=== PATIENT | male | born 1955 | race Caucasian/White ===

== ENCOUNTER 2017-04-08 13:09 | Inpatient (IN) | payer MEDICARE, OTHER ==
[~2017-04-08] VITALS: Ht 170.2 cm; Wt 66.0 kg
[~2017-04-08 13:09] MED LIST: ASPI325T32 PO; CARB100T2 PO; FOLI-49 PO; GABA-528 PO; IBUP400T22 PO; ICOS1CAP PO; LEVE100018 PO; LISI10TA2 PO; NEBI5TAB9 PO; OMEP20CA16 PO; SIMV40TA3 PO; VITA1TAB58 PO
--- NOTE | 2017-04-08 13:46 | ERD ---
ER Documentation Chief Complaint Date/Time DATE: 04/08/17 TIME: 13:34 Chief Complaint MECHANICAL FALL WITH MULTIPLE ABRASIONS HPI 62-year-old male who presented emergency department for head/facial injury, neck pain/stiffness secondary to mechanical fall. Stated that he was walking on a 3 stair step ups when his left foot missed a step, then he fell forward hitting his forehead and face to a metal gate door, then felt that his neck snapped back. Complains of left upper eyebrow abrasion, left cheek abrasion, left parietal area abrasion. Now complains of headache and asked for a diagnostic imagings. Stated that he is normally limping on his left side( chronic). He also stated that he has left upper extremity deficit due to the fact that he had a fall/head injury when he was 6 months old and developed a left-sided paralysis. Denies loss of consciousness, dizziness, dizziness prior to fall, loss of consciousness, blurry vision, changes in vision, photophobia, facial pain, ear pain, throat pain, difficulty swallowing, shoulder pain, chest pain, chest pain prior to fall, cough, hemoptysis, abdominal pain, back pain, loss of appetite, nausea, vomiting, nausea and vomiting prior to fall, hematochezia, diarrhea, constipation, urinary symptoms, bladder and bowel incontinences, numbness or tingling sensation, difficulty walking, recent travel, recent exposure to illness, recent antibiotic use in the last 3 months, fever, chills. No known drug allergies. Past medical history of petit mal seizure, hypertension, Cardiac. Surgical history: Left upper arm surgery (done when he was 7 years old) with metal implant. Pacemaker placement. Left lower extremity surgery (not sure if he has any metal implant). Medication: Reviewed. Social history: Not working at this time. Denies smoking, use of alcohol, use of illegal drugs. ROS All systems reviewed and are negative except as per history of present illness. Medications Home Meds Active Scripts Ibuprofen* (Motrin*) 400 Mg Tab, 400 MG PO Q8, #30 TAB Prov:DAMASO CONNORS 09/06/15 Reported Medications Omeprazole* (Omeprazole*) 20 Mg Capsule.dr, 20 MG PO DAILY, #30 CAP 09/06/15 Icosapent Ethyl (VASCEPA) 1 Gm Capsule, 2 GM PO BID, CAP 09/06/15 Gabapentin* (Gabapentin*) 800 Mg Tablet, 800 MG PO TID, TAB 09/06/15 Carbamazepine* (Carbamazepine*) 100 Mg Tab.chew, 200 MG PO TID, TAB.CHEW 09/06/15 Aspirin* (Aspirin* EC) 325 Mg Tab, 325 MG PO DAILY, TAB 09/06/15 Levetiracetam* (Keppra*) 1,000 Mg Tablet, 1500 MG PO BID, TAB 03/21/14 Vitamin B Complex (B Complex) 1 Tab.sa Tablet.sa, 1 TAB.SA PO DAILY 07/04/13 Simvastatin (Simvastatin) 40 Mg Tablet, 40 MG PO DAILY 07/04/13 Lisinopril* (Lisinopril*) 10 Mg Tablet, 20 MG PO DAILY 07/04/13 Folic Acid* (Folic Acid*) 1 Mg Tablet, 1 MG PO DAILY 07/04/13 Nebivolol* (Bystolic*) 5 Mg Tab, 5 MG PO DAILY 07/04/13 Allergies Allergies: Coded Allergies: No Known Allergies (Verified Allergy, Unknown, 09/06/15) PMhx/Soc History of Surgery: Yes (PACEMAKER, RT RCR, LEFT FOOT, LT HAND/ARM) Anesthesia Reaction: No Hx Neurological Disorder: No Hx Respiratory Disorders: No Hx Cardiac Disorders: No Hx Psychiatric Problems: No Hx Miscellaneous Medical Probl: No Hx Alcohol Use: No Hx Substance Use: No Hx Tobacco Use: No Physical Exam Vitals Vital Signs Date Time Temp Pulse Resp B/P Pulse Ox O2 Delivery O2 Flow Rate FiO2 04/08/17 13:13 98.1 86 18 113/71 97 Physical Exam CONSTITUTIONAL: HEAD: Normocephalic; Left temporal area has mild abrasion no active bleeding. Left maxillary area has an abrasion with no active bleeding. EYES: Conjunctiva clear, sclera non-icteric, EOM intact. PERRLA. Extraocular movement of his eyes is within normal limits. No pain on eye movement. Left upper near supraorbital area has abrasion with no laceration and has no active bleeding. Ears: Hearing intact. EACs clear, TMs non-bulging, non-inflamed, translucent & mobile, ossicles normal appearance, No obstructions, no erythema, no discharges. No bleeding. Nose: No obstructions. No polyps. No external lesions. Mucosa non-inflamed. No external lesions, septum and turbinates normal. No rhinorrhea. No discharges. Frontal sinus is non-tender to palpation. Maxillary sinus is non-tender to palpation. Midline with no obvious deformity. No septal hematoma. Patent airway. MOUTH: Moist mucous membranes, no lesion, no obstructions, no vesicles, no thrush, patent airway. No signs of tooth or teeth avulsions. Patent airway. Able to control tongue movement. Throat: Uvula in midline. Right tonsil is +1 with no erythema, no exudate. Left tonsil is +1 with no erythema, no exudate. Tolerating secretions well. Good gag reflex. Able to control tongue movement. Patent airway. Neck: Supple, without lesions, bruits, or adenopathy. No mass. Thyroid non- enlarged and non-tender to palpation. Please see musculoskeletal physical examination. CHEST: Symmetrical chest. Respirations even and not labored. No retractions noted. CARDIOVASCULAR: Normal S1, S2. RRR. No murmurs, gallops. RESPIRATORY: Normal chest excursion with respiration; breath sounds clear and equal bilaterally; no wheezes, rhonchi, or rales. Breathing even and unlabored. Speaking in clear, full, and complete sentences w/ ease. ABDOMEN: Normal bowel sounds normal. Soft, round, non-distended, non-guarding, no tenderness, no rebound, no organomegaly, no masses, no pulsating abdominal mass. No hernia. No peritoneal signs. : No CVA tenderness. PELVIS: Stable pelvis. No evidence of trauma or deformity. MUSCULOSKELETAL: No masses, effusions. C-spine has no swelling/bulging/ discoloration/deformity with good and full range of motion but complains of stiffness. There is supraspinatus tenderness to left upper and right upper area. T-spine/L-spine has no swelling/bulging/discoloration/deformity/ tenderness with good and full range of motion. Left upper extremity has chronic contraction due to left-sided paralysis secondary to head injury/fall when he was 6 months old. Right upper extremity is unremarkable. Bilateral hips are stable and unremarkable with good and full range of motion and is no tenderness. Bilateral knees are unremarkable with no obvious deformity and has good and full range of motion. Patient has left lower extremity limping secondary to residual from his left sided paralysis that is also secondary to an head injury when he was 6 months old. No calf tenderness. NEUROVASCULAR: Distal pulses are present. Pedal pulse are present, equal, and normal. Capillary refills are < 2 seconds. NEUROLOGIC: Alert and oriented x4. Speaks full and clear sentences. PSYCHOLOGICAL: The patients mood and manner are appropriate. No hallucinations , delusions. Not SI. Not HI. Has the capacity to decide for self SKIN: Normal for age and ethnicity; warm; dry; good turgor; no apparent lesions or exudates. No rashes, hives, discoloration. Procedures/MDM Examination: Please see physical examination. Disease process, medical treatment was explained to the patient and family member. They verbalized understanding and agreed with the diagnostic tests, medical treatment, and follow-up care. Radiology: CT of the brain Impression: No intracranial hemorrhage, mass-effect or midline shift. Large area of encephalomalacia with dystrophic calcifications involving the lateral right frontal, temporal lobe including the insular cortex and subinsular region extending into the right basal ganglia, unchanged. Generalized volume loss. Chronic lacunar infarcts in the left basal ganglia. Intracranial atherosclerosis. CT of the face and maxillary area Impression: No facial bone fracture is identified. Moderate degenerative enthesopathy is seen to the cervical spine. A 3.6 cm in maximum diameter polyp or mucous retention cyst is seen within the left maxillary sinus. Encephalomalacia seen within the right frontal lobe with atherosclerotic vascular calcification noted. CT of the C-spine Impression: Nondisplaced fracture through the anterior superior corner of the C6 vertebral body. The posterior osseous elements appear intact. The margins appear slightly sclerosis and there is no significant associated soft tissue swelling. The chronicity of this is therefore uncertain. Clinical correlation is indicated. No other fracture is identified. Reversal of the normal lordotic curvature to the cervical spine centered at C5. Loss of disc height at C4-C5, C5-C6 and at C6-C7 associated with degenerative enthesopathy with mild stenosis through the bilateral nerve root canals at C6-C7 secondary to degenerative spurring. Atherosclerotic vascular calcifications noted. Case was discussed with supervising emergency room physician, Dr. Yareli Barnhart who suggested to call neurosurgery for this. Consultation: Neurosurgeon. 15:30 spoke with neurosurgery, Dr.Gregoy Myers who suggested to put patient on [place] J collar. He stated to call [facility] to order this. He also stated that patient needs to be admitted. Conversation with neurosurgeon was discussed with supervising emergency room physician, Dr. Yareli Barnhart who agreed in my medical decision making. She also agreed to continue care and process the admission. Treatment: [place] J Collar. Differential diagnosis: Subdural hematoma versus subarachnoid hemorrhage versus skull fracture versus orbital fracture versus concussion versus spinal fracture Secondary to head injury Medical decision makin-year-old male who presented emergency department for head/facial injury, neck pain secondary to mechanical fall. Stated that he was walking on a 3 stair step ups when his left foot missed a step, then he fell forward hitting his forehead and face to a metal gate door, then felt that his neck snapped back. Complains of left upper eyebrow abrasion, left cheek abrasion, left parietal area abrasion. Now complains of headache and asked for a diagnostic imagings. Stated that he is normally limping on his left side. He also stated that he has left upper extremity deficit due to the fact that he had a fall/head injury when he was 6 months old and developed a left-sided paralysis. Patient's complaint, patient's history about his complaint, my physical findings, diagnostic test results, my reevaluation are consistent with final diagnosis of nondisplaced C6 fracture/facial contusions secondary to head injury/fall. Departure Diagnosis: Primary Impression: Cervical spine fracture Additional Impressions: Head injury Facial contusion Additional Instructions: MICHELLE PIZANO Apr 08, 2017 13:44 MICHELLE PIZANO Apr 08, 2017 13:44
--- NOTE | 2017-04-08 14:26 | RADRPT ---
PROCEDURE: CT Brain without contrast. CLINICAL INDICATION: Head injury. TECHNIQUE: A CT of the brain was performed on a multidetector CT scanner utilizing axial sections from the skull base through the vertex without contrast. Images were reviewed on a high-resolution [employer] workstation. Exam CTDI = 45.01 mGy and the DLP = 630.20 mGy-cm. One or more of the following dose reduction techniques were used: Automated exposure control Adjustment of the mA and/or kV according to patient size. Use of iterative reconstruction technique. COMPARISON: Head CT 03/21/2014. FINDINGS: Mild diffuse cerebral and cerebellar atrophy is present. There is proportionate dilatation of the v entricular system and sulci in a symmetric fashion. There is prominence of the extraaxial spaces sec ondary to atrophy. There is no evidence of intracranial hemorrhage, mass effect or midline shift. Re demonstrated is a large area of encephalomalacia involving the lateral right frontal lobe, superior anterior temporal lobe including the insula and sub insular region extending into the right basal ga nglia. Dystrophic calcifications are identified along the margins of the encephalomalacia at the zayra benitez. There is ex vacuo dilatation of the right lateral ventricle. There are small chronic lacunar i nfarcts in the left basal ganglia. No abnormal intra-axial or extra-axial fluid collections are see n. The density of the brain is normal and the christine/white matter differentiation is well preserved. Mild patchy diffuse deep white matter microangiopathic ischemic change is seen. The osseous structures are unremarkable. Paranasal sinuses are clear. Vascular calcifications are identified. IMPRESSION: 1. No intracranial hemorrhage, mass effect or midline shift. 2. Large area of encephalomalacia with dystrophic calcifications involving the lateral right fronta l, temporal lobe including the insular cortex sub insular region extending into the right basal gang ana, unchanged. 3. Generalized volume loss. Chronic lacunar infarcts in the left basal ganglia. 4. Intracranial atherosclerosis. RPTAT: PP .Ruthie Trevino MD, MD Date Time Electronically viewed and signed by .Ruthie Trevino MD, on 04/08/2017 14:26 .O/
--- NOTE | 2017-04-08 14:34 | RADRPT ---
PROCEDURE: CT Maxillofacial without Contrast CLINICAL INDICATION: Head injury TECHNIQUE: Transaxial images were obtained through the maxillofacial region on a multi-slice scan er without the intravenous contrast administration. Sagittal and coronal re-formations were subseque ntly reconstructed. One or more of the following dose reduction techniques were used: - Automated exposure control. - Adjustment of the mA and/or kV according to patient size. - Use of iterative reconstruction technique. Radiation dose: CTDIvol = 29.45 mGy; DLP = 564.09 mGy-cm. COMPARISON: No prior studies are available for comparison. FINDINGS: Osseous structures: Appear intact with no fracture or destructive process evident. There is metal ar tifact from dental fillings. There is moderate degenerative enthesopathy to the cervical spine. Paranasal sinuses: There is a 3.6 cm in maximal diameter polyp for a mucous retention cyst within th e inferior left maxillary antrum. The remaining paranasal sinuses are well-aerated. Mastoid air cells: Appear well pneumatized. Temporomandibular joints: Appear unremarkable. Orbits: The ocular globes, optic nerves, and intraorbital contents appear unremarkable. Soft tissues: There is encephalomalacia within the right frontal lobe. Vascular calcifications note d. IMPRESSION: 1. No facial bone fracture is identified. 2. Moderate degenerative enthesopathy is seen to the cervical spine. 3. A 3.6 cm in maximum diameter polyp for a mucous retention cyst is seen within the left maxillary sinus. 4. Encephalomalacia seen within the right frontal lobe with atherosclerotic vascular calcification noted. Physician Tanvir Date Time Electronically viewed and signed by Physician Tanvir on 04/08/2017 14:34 /
--- NOTE | 2017-04-08 15:07 | RADRPT ---
PROCEDURE: CT C-Spine without Contrast CLINICAL INDICATION: Injury TECHNIQUE: Transaxial images were obtained through the cervical spine on a multi sliced scanner wit hout contrast. Sagittal and coronal re-formations were subsequently reformatted. One or more of the following dose reduction techniques were used: - Automated exposure control. - Adjustment of the mA and/or kV according to patient size. - Use of iterative reconstruction technique. Radiation dose: CTDIvol = 22.15 mGy; DLP = 444.13 mGy-cm. COMPARISON: None FINDINGS: Osseous structures: There is a nondisplaced fracture through the anterior superior corner of the C6 vertebral body. The posterior osseous elements appear intact. The remaining visualized osseous janusz ments appear intact. Alignment: There is reversal of the normal lordotic curvature to the cervical spine centered at C5. No significant subluxation is evident. Disk spaces, endplates, and facet joints: There is loss of disk height at C4-C5, C5-C6 and at C6-S7 associated with anterior and posterior spondylosis. Mild diffuse degenerative facet changes are also noted. There is mild bilateral nerve root canal stenosis at C6-C7 secondary to degenerative spurrin g. Soft tissues: Atherosclerotic vascular calcifications noted. IMPRESSION: 1. Nondisplaced fracture through the anterior superior corner of the C6 vertebral body. The posteri or osseous elements appear intact. The margins appear slightly sclerosis and there is no significan t associated soft tissue swelling. The chronicity of this is therefore uncertain. Clinical correla tion is indicated. No other fracture is identified. 2. Reversal of the normal lordotic curvature to the cervical spine centered at C5. 3. Loss of disk height at C4-C5, C5-C6 and at C6-C7 associated with degenerative enthesopathy with mild stenosis to the bilateral nerve root canals at C6-C7 secondary to degenerative spurring. 4. Atherosclerotic vascular calcifications noted. Findings of fracture involving the anterior superior corner of this C6 vertebral body were telephone d by Matt Tucker MD to Dr. Ruiz on 04/08/2017 at 1445 hours. Physician Tanvir Date Time Electronically viewed and signed by Physician Tanvir on 04/08/2017 15:06 /
[2017-04-08 16:52] LABS: ADD SCAN DIFF NO
[2017-04-08 16:55] LABS: BASOPHIL # 0.1 10^3/ul (0.0-0.1); BASOPHILS % 0.7 % (0.0-2.0); EOSINOPHILS # 0.2 10^3/ul (0.0-0.5); EOSINOPHILS % 1.8 % (0.0-7.0); HEMATOCRIT 38.2 % (42.0-52.0); HEMOGLOBIN 13.2 g/dl (14.0-18.0); LYMPHOCYTES # 1.3 10^3/ul (0.8-2.9); LYMPHOCYTES % 15.2 % (15.0-51.0); MEAN CORPUSCULAR HEMOGLOBIN 32.1 pg (29.0-33.0); MEAN CORPUSCULAR HGB CONC 34.6 g/dl (32.0-37.0); MEAN CORPUSCULAR VOLUME 92.9 fl (82.0-101.0); MEAN PLATELET VOLUME 9.2 fl (7.4-10.4); MONOCYTE # 0.7 10^3/ul (0.3-0.9); MONOCYTES % 8.5 % (0.0-11.0); NEUTROPHIL # 6.3 10^3/ul (1.6-7.5); NEUTROPHILS % 73.6 % (39.0-77.0); PLATELET COUNT 168 10^3/UL (140-415); RED BLOOD COUNT 4.11 10^6/ul (4.70-6.10); RED CELL DISTRIBUTION WIDTH 11.9 % (11.5-14.5); WHITE BLOOD COUNT 8.6 10^3/ul (4.8-10.8)
[2017-04-08] MEDS ORDERED: BISACODYL (EC) 5 MG TAB PO PRN (17:00)
[2017-04-08] MEDS ORDERED: HYDROCODONE/APAP (5/325) TAB PO PRN (17:00)
[2017-04-08] MEDS ORDERED: ONDANSETRON 4 MG INJ IV PRN (17:00)
[2017-04-08] MEDS ORDERED: NACL 0.9% 3 ML SYG IV SCH (17:00)
[2017-04-08] MEDS ORDERED: ACETAMINOPHEN 325 MG TAB PO PRN ×2 (17:00)
[2017-04-08] MEDS ORDERED: DOCUSATE SODIUM 100 MG CAP PO PRN (17:00)
[2017-04-08 17:17] LABS: ALANINE AMINOTRANSFERASE 45 IU/L (13-69); ALKALINE PHOSPHATASE 64 IU/L (42-121); ANION GAP 19 (8-16); ASPARTATE AMINO TRANSFERASE 37 IU/L (15-46); BILIRUBIN,TOTAL 0.2 mg/dl (0.2-1.3); BLOOD UREA NITROGEN 16 mg/dl (7-20); CALCIUM 9.1 mg/dl (8.4-10.2); CARBON DIOXIDE 30 mmol/L (21-31); CHLORIDE 100 mmol/L (97-110); CREATININE 0.69 mg/dl (0.61-1.24); GLUCOSE 80 mg/dl (70-220); POTASSIUM 3.9 mmol/L (3.5-5.1); SODIUM 145 mmol/L (135-144)
[2017-04-08 17:18] LABS: ALBUMIN 4.7 g/dl (3.3-4.9); ALBUMIN/GLOBULIN RATIO 1.88; BILIRUBIN,INDIRECT 0.2 mg/dl (0-1.1); TOTAL PROTEIN 7.2 g/dl (6.1-8.1)
[2017-04-08 17:29] LABS: TROPONIN-I < 0.012 ng/ml (0.00-0.12)
--- NOTE | 2017-04-08 18:18 | EN ---
Date/Time of Note Date/Time of Note DATE: 04/08/17 TIME: 18:15 ER Progress Note This is a 62-year-old male who is been seen by the physician trade sales assistant and evaluated by myself after the patient had radiographic imaging and was positive for a C6 vertebral fracture which was nondisplaced over the anterior superior corner of the C6 vertebral body. The patient was immediately placed in C-spine precaution. The neurosurgeon has been consulted and requested a [place] J collar. However I attempted to find the color by contacting the orthopedic surgeon senior occupational therapist Dr. Walker, who stated he did not have any of those collars available. I contacted central supply who also stated they did not have these collars available either. Therefore the patient was placed in C-spine precaution with a [place] collar. He remained neurovascularly intact with no new focal neurological deficits. This is a very pleasant male at this time stating he did not require any analgesic medication. I spoken with his primary care physician Dr. Lema who kindly stated he will admit the patient and I did feel the patient was stable to go to the telemetry service as again he had no acute focal neurological deficits. He had ambulated into the emergency department for evaluation after the mechanical fall. He was hemodynamically stable. ANGEL LUIS BRYANT Apr 08, 2017 18:17
[2017-04-08 21:06] VITALS: PULSE 97
[2017-04-08 21:54] VITALS: Ht 170.2 cm; Wt 66.0 kg
[2017-04-08 22:14] VITALS: BP 141/96; RESP 17
[2017-04-08] MEDS: GABAPENTIN 400 MG CAP PO SCH (22:16)
[2017-04-08] MEDS: LEVETIRACETAM 500 MG TAB PO SCH (22:16)
[2017-04-08] MEDS: FISH OIL 1,000 MG CAP PO SCH (22:16)
[2017-04-08] MEDS: carBAMAZepine CHEW 100 MG CHEW PO SCH (22:17)
[2017-04-08] MEDS: ATORVASTATIN 40 MG TAB PO SCH (22:17)
[2017-04-08 23:41] VITALS: BP 139/90; RESP 17
[2017-04-09] VITALS (12 sets, daily range): BP systolic 116–128; BP diastolic 68–86; PULSE 78–89; RESP 18–20
[2017-04-09] MEDS: PANTOPRAZOLE (EC) 40 MG TAB PO SCH (05:40)
[2017-04-09 05:58] LABS: ADD SCAN DIFF NO
[2017-04-09 06:02] LABS: BASOPHILS % 0.7 % (0.0-2.0); EOSINOPHILS # 0.2 10^3/ul (0.0-0.5); EOSINOPHILS % 3.6 % (0.0-7.0); HEMATOCRIT 34.6 % (42.0-52.0); HEMOGLOBIN 11.9 g/dl (14.0-18.0); LYMPHOCYTES # 1.1 10^3/ul (0.8-2.9); LYMPHOCYTES % 19.6 % (15.0-51.0); MEAN CORPUSCULAR HEMOGLOBIN 31.6 pg (29.0-33.0); MEAN CORPUSCULAR HGB CONC 34.4 g/dl (32.0-37.0); MEAN PLATELET VOLUME 9.3 fl (7.4-10.4); MONOCYTE # 0.5 10^3/ul (0.3-0.9); MONOCYTES % 9.2 % (0.0-11.0); NEUTROPHIL # 3.9 10^3/ul (1.6-7.5); NEUTROPHILS % 66.7 % (39.0-77.0); PLATELET COUNT 143 10^3/UL (140-415); RED BLOOD COUNT 3.76 10^6/ul (4.70-6.10); RED CELL DISTRIBUTION WIDTH 11.9 % (11.5-14.5); WHITE BLOOD COUNT 5.8 10^3/ul (4.8-10.8)
[2017-04-09 06:44] LABS: ALBUMIN 4.1 g/dl (3.3-4.9); ALBUMIN/GLOBULIN RATIO 2.15; BILIRUBIN,INDIRECT 0.2 mg/dl (0-1.1); BILIRUBIN,TOTAL 0.2 mg/dl (0.2-1.3); CALCIUM 8.3 mg/dl (8.4-10.2); CREATININE 0.7 mg/dl (0.61-1.24)
[2017-04-09] MEDS ORDERED: VITAMIN B COMPLEX PO SCH (09:00)
[2017-04-09] MEDS: FISH OIL 1,000 MG CAP PO SCH ×2 (09:18→20:24)
[2017-04-09] MEDS: VITAMIN B COMPLEX/VIT C CAP PO SCH (09:18)
[2017-04-09] MEDS: LEVETIRACETAM 500 MG TAB PO SCH ×2 (09:18→20:25)
[2017-04-09] MEDS: FOLIC ACID 1 MG TAB PO SCH (09:19)
[2017-04-09] MEDS: GABAPENTIN 400 MG CAP PO SCH ×3 (09:19→20:25)
[2017-04-09] MEDS: carBAMAZepine CHEW 100 MG CHEW PO SCH ×3 (09:19→20:25)
[2017-04-09] MEDS: LISINOPRIL 20 MG TAB PO SCH (09:20)
[2017-04-09] MEDS: NEBIVOLOL 5 MG TAB PO SCH (09:20)
[2017-04-09] MEDS: ATORVASTATIN 40 MG TAB PO SCH (20:25)
--- NOTE | 2017-04-09 21:48 | CONS ---
Date/Time of Note Date/Time of Note DATE: 04/09/17 TIME: 21:42 Assessment/Plan Assessment/Plan Problems: (1) C6 cervical fracture Status: Acute Additional Assessment/Plan C6 fracture, chronic with neck pain Continue c-collar bc of neck pain cannot exclude ligamentous injury C-Collar x 2 weeks (whenever weightbearing, not necessary when sleeping/ supine ) and then flexion-extension xray to rule out ligamentous instability (he may follow up with me for this study if desired). Consultation Date/Type/Reason Admit Date/Time Apr 08, 2017 at 16:37 Date of Consultation: Apr 09, 2017 Type of Consultation: neurosurgery Reason for Consultation C6 fracture Hx of Present Illness 62 year old male with history of multiple prior falls presented to ED after fall down stairs. CTH negative. CT c-spine positive for multilevel degenerative disease, reversal of lordosis, and chronic fracture (withe sclerotic margins) of anterior vertebral body- superior endplate of C6. There is no significant loss of height. Social History Smoking Status: Never smoker Exam/Review of Systems Vital Signs Vitals Vital Signs Date Time Temp Pulse Resp B/P Pulse Ox O2 Delivery O2 Flow Rate FiO2 04/09/17 20:43 80 04/09/17 20:00 98.4 20 121/79 98 04/08/17 20:29 Room Air Intake and Output 04/08/17 04/08/17 04/09/17 15:00 23:00 07:00 Intake Total 120 ml Output Total 200 ml Balance -200 ml 120 ml Exam Neurologic exam non-focal; patient with flexion contracture LUE and existing baseline neurodeficits. He is however [id number] PERRL EOMI. Neck is tender in the midline to palpation and with active range of motion. Collar replaced. Results Result Diagram: 04/09/17 0526 04/09/17 0526 Results 24 hrs Laboratory Tests Test 04/09/17 05:26 White Blood Count 5.8 # Red Blood Count 3.76 L Hemoglobin 11.9 L Hematocrit 34.6 L Mean Corpuscular Volume 92.0 Mean Corpuscular Hemoglobin 31.6 Mean Corpuscular Hemoglobin Concent 34.4 Red Cell Distribution Width 11.9 Platelet Count 143 Mean Platelet Volume 9.3 Neutrophils % 66.7 Lymphocytes % 19.6 Monocytes % 9.2 Eosinophils % 3.6 Basophils % 0.7 Nucleated Red Blood Cells % 0.0 Neutrophils # 3.9 Lymphocytes # 1.1 Monocytes # 0.5 Eosinophils # 0.2 Basophils # 0.0 Nucleated Red Blood Cells # 0.0 Sodium Level 144 Potassium Level 4.0 Chloride Level 107 Carbon Dioxide Level 26 Anion Gap 15 Blood Urea Nitrogen 15 Creatinine 0.70 Glucose Level 98 Calcium Level 8.3 L Total Bilirubin 0.2 Direct Bilirubin 0.00 Indirect Bilirubin 0.2 Aspartate Amino Transf (AST/SGOT) 34 Alanine Aminotransferase (ALT/SGPT) 42 Alkaline Phosphatase 64 Total Protein 6.0 #L Albumin 4.1 Globulin 1.90 Albumin/Globulin Ratio 2.15 Medications Medications Current Medications Acetaminophen (Tylenol Tab) 650 mg Q6H PRN PO PAIN LEVEL 1-3 OR FEVER; Start at 17:00 Acetaminophen/ Hydrocodone Bitart ([place] (5/325)) 1 tab Q6H PRN PO PAIN LEVEL 4 -6; Start 04/08/17 at 17:00 Docusate Sodium (Colace) 100 mg Q12H PRN PO CONSTIPATION; Start 04/08/17 at 17: 00 Bisacodyl (Dulcolax) 5 mg DAILY PRN PO CONSTIPATION; Start 04/08/17 at 17:00 Pantoprazole (Protonix Tab) 40 mg DAILY@06 PO Last administered on 04/09/17 05 :40; Admin Dose 40 MG; Start 04/09/17 at 06:00 Carbamazepine (Tegretol) 200 mg TID PO Last administered on 04/09/17 20:25; Admin Dose 200 MG; Start 04/08/17 at 21:00 Folic Acid (Folic Acid) 1 mg DAILY PO Last administered on 04/09/17 09:19; Admin Dose 1 MG; Start 04/09/17 at 09:00 Gabapentin (Neurontin) 800 mg TID PO Last administered on 04/09/17 20:25; Admin Dose 800 MG; Start 04/08/17 at 21:00 Levetiracetam (Keppra) 1,500 mg BID PO Last administered on 04/09/17 20:25; Admin Dose 1,500 MG; Start 04/08/17 at 21:00 Lisinopril (Zestril) 20 mg DAILY PO Last administered on 04/09/17 09:20; Admin Dose 20 MG; Start 04/09/17 at 09:00 Miscellaneous Medication (Bystolic) 5 mg DAILY PO Last administered on 09:20; Admin Dose 5 MG; Start 04/09/17 at 09:00 Fish Oil (Fish Oil) 2,000 mg BID PO Last administered on 04/09/17 20:24; Admin Dose 2,000 MG; Start 04/08/17 at 21:00 Atorvastatin Calcium (Lipitor) 40 mg QHS PO Last administered on 04/09/17 20: 25; Admin Dose 40 MG; Start 04/08/17 at 21:00 Vitamin B Complex/ Vitamin C (Berocca) 1 cap DAILY PO Last administered on 04/09 09:18; Admin Dose 1 CAP; Start 04/09/17 at 09:00 CRYSTAL CHIRINOS MD Apr 09, 2017 21:48
[2017-04-10] VITALS (10 sets, daily range): BP systolic 110–161; BP diastolic 74–88; PULSE 81–84; RESP 16–20
[2017-04-10] MEDS: PANTOPRAZOLE (EC) 40 MG TAB PO SCH (05:32)
[2017-04-10] MEDS: VITAMIN B COMPLEX/VIT C CAP PO SCH (08:20)
[2017-04-10] MEDS: FISH OIL 1,000 MG CAP PO SCH ×2 (08:21→20:15)
[2017-04-10] MEDS: NEBIVOLOL 5 MG TAB PO SCH (08:21)
[2017-04-10] MEDS: FOLIC ACID 1 MG TAB PO SCH (08:22)
[2017-04-10] MEDS: LEVETIRACETAM 500 MG TAB PO SCH ×2 (08:22→20:15)
[2017-04-10] MEDS: LISINOPRIL 20 MG TAB PO SCH (08:23)
[2017-04-10] MEDS: carBAMAZepine CHEW 100 MG CHEW PO SCH ×3 (08:23→20:16)
[2017-04-10] MEDS: GABAPENTIN 400 MG CAP PO SCH ×3 (08:23→20:16)
--- NOTE | 2017-04-10 13:36 | HP ---
Date/Time of Note Date/Time of Note DATE: 04/10/17 TIME: 13:25 Assessment/Plan VTE Prophylaxis VTE Prophylaxis Intervention: SCD's Lines/Catheters IV [facility]from [facility] Saline Lock Urinary Cath still in place: No Assessment/Plan Problems: (1) C6 cervical fracture Status: Acute Comment: Neurosurgery is involved in this case is already in a collar. I will give us guidance. Fortunately it appears that there is no neurologic sequela. Management rehab as per the guidance from neurosurgery. Qualifiers: Encounter type: initial encounter Fracture type: closed Fracture morphology: unspecified fracture morphology Fracture alignment: nondisplaced Qualified Code: S12.501A - Closed nondisplaced fracture of sixth cervical vertebra, unspecified fracture morphology, initial encounter (2) Post traumatic seizure disorder Status: Chronic Comment: He has been without evidence of seizure for some time. We will continue him on his anti-epilepsy drug therapy she is tolerated without incident. (3) Other hyperlipidemia Status: Chronic Comment: He will be continued on a statin therapy is all along with omega-3 [address] a Vas-Cath for the hypertriglyceridemia (4) Essential hypertension Status: Chronic Comment: Continue JONATHAN inhibitor therapy (5) Hyperlipidemia Comment: As above HPI/ROS Admit Date/Time Admit Date/Time Apr 08, 2017 at 16:37 Hx of Present Illness Late entry [facility], [place] 62-year-old single male who has a history of a traumatic brain injury requiring resulting in a left hemiparesis upper extremity for greater than lower extremity. He does have a history of occasional falls. He was climbing up the stairs at his residence and caught his foot at the top step falling forward and hitting his head against a gate. This snapped his head back and resulted in a crunching sound and immediate pain. He did not have any neurologic changes or new issues. Is brought to the emergency room where is been found to have a C6 fracture. ROS Constitutional: no complaints Eyes: no complaints ENT: no complaints Respiratory: no complaints Cardiovascular: no complaints Gastrointestinal: no complaints Genitourinary: no complaints Musculoskeletal: neck pain Skin: no complaints Neurologic: no complaints (No changes in his baseline status and no activities of seizures) Endocrine: no complaints Lymphatic: no complaints PMH/Family/Social Past Medical History 1) status post traumatic injury at age 7 months with resultant left hemiparesis left upper extremity much greater than left lower extremity; 2) osteoporosis 3) hyperlipidemia 4) hypertension 5) seizure disorder 6) history of third-degree heart block 7) colonic polyposis 8) diverticulosis coli 9) gastroesophageal reflux disease 10) status post pacemaker placement 11) history of right great toe fracture in 2013 Medications; aspirin 325 mg once daily; Bystolic 5 mg once daily; folate 1 mg once a day; gabapentin 800 3 times daily; Keppra 1500 mg twice daily; lisinopril 20 mg once a day; Vascepa 2 g twice daily; simvastatin 40 mg once a day; Prolia 60 mg every 6 month; omeprazole 20 mg every morning; B complex Past Surgical History Status post right rotator cuff repair; status post left Achilles repair 2; status post ORIF of left radius fracture; status post baclofen pump placement and then subsequent removal Family History Significant Family History: heart disease, diabetes Social History Born in [place] and raise; high school education without experience ; single lives alone; 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 Alcohol Use: none Smoking Status: Never smoker Drug Use: none Exam/Review of Systems Vital Signs Vitals Vital Signs Date Time Temp Pulse Resp B/P Pulse Ox O2 Delivery O2 Flow Rate FiO2 04/10/17 12:11 81 04/10/17 11:54 98.6 18 120/83 95 04/08/17 20:29 Room Air Intake and Output 04/09/17 04/09/17 04/10/17 15:00 23:00 07:00 Intake Total 360 ml 240 ml Output Total 475 ml 300 ml Balance -115 ml -60 ml Exam Constitutional: alert, oriented Head: atraumatic, normocephalic ENMT: mucosa pink and moist, nl external ears & nose, nl lips & teeth, nl nasal mucosa & septum Neck: other (In a [place] collar) Respiratory: clear to auscultation, normal air movement Cardiovascular: nl pulses, regular rate and rhythm Gastrointestinal: nl liver, spleen, non-tender, soft Extremities: normal pulses, other (Left upper extremity with contracture fixed ; left lower extremity with some muscle atrophy) Neurological: FAMILY PRACTITIONER II-XII intact, nl mental status, nl speech, nl strength Labs Result Diagram: 04/09/1752504/09/17525 Medications Medications Current Medications Acetaminophen (Tylenol Tab) 650 mg Q6H PRN PO PAIN LEVEL 1-3 OR FEVER; Start at 17:00 Acetaminophen/ Hydrocodone Bitart ([place] (5/325)) 1 tab Q6H PRN PO PAIN LEVEL 4 -6; Start 04/08/17 at 17:00 Docusate Sodium (Colace) 100 mg Q12H PRN PO CONSTIPATION; Start 04/08/17 at 17: 00 Bisacodyl (Dulcolax) 5 mg DAILY PRN PO CONSTIPATION; Start 04/08/17 at 17:00 Pantoprazole (Protonix Tab) 40 mg DAILY@06 PO Last administered on 04/10/17 05 :32; Admin Dose 40 MG; Start 04/09/17 at 06:00 Carbamazepine (Tegretol) 200 mg TID PO Last administered on 04/10/17 12:37; Admin Dose 200 MG; Start 04/08/17 at 21:00 Folic Acid (Folic Acid) 1 mg DAILY PO Last administered on 04/10/17 08:22; Admin Dose 1 MG; Start 04/09/17 at 09:00 Gabapentin (Neurontin) 800 mg TID PO Last administered on 04/10/17 12:37; Admin Dose 800 MG; Start 04/08/17 at 21:00 Levetiracetam (Keppra) 1,500 mg BID PO Last administered on 04/10/17 08:22; Admin Dose 1,500 MG; Start 04/08/17 at 21:00 Lisinopril (Zestril) 20 mg DAILY PO Last administered on 04/10/17 08:23; Admin Dose 20 MG; Start 04/09/17 at 09:00 Miscellaneous Medication (Bystolic) 5 mg DAILY PO Last administered on 08:21; Admin Dose 5 MG; Start 04/09/17 at 09:00 Fish Oil (Fish Oil) 2,000 mg BID PO Last administered on 04/10/17 08:21; Admin Dose 2,000 MG; Start 04/08/17 at 21:00 Atorvastatin Calcium (Lipitor) 40 mg QHS PO Last administered on 04/09/17 20: 25; Admin Dose 40 MG; Start 04/08/17 at 21:00 Vitamin B Complex/ Vitamin C ([place]) 1 cap DAILY PO Last administered on 04/10 08:20; Admin Dose 1 CAP; Start 04/09/17 at 09:00 KAJAL WU MD Apr 10, 2017 13:35
--- NOTE | 2017-04-10 13:48 | PN ---
Date/Time of Note Date/Time of Note DATE: 04/10/17 TIME: 13:45 Assessment/Plan VTE Prophylaxis VTE Prophylaxis Intervention: contraindicated Lines/Catheters IV Catheter Type (from Nrs): Saline Lock Urinary Cath still in place: No Assessment/Plan Problems: (1) C6 cervical fracture Status: Acute Comment: Please see the consult note from Dr. Myers. This may not be an acute fracture been aggravation ligamentously of an old fracture. like this request to wear his collar but this appears to be much less frightening situation. Of physical therapy make sure that he is competent for ambulation and with is come permission to discharge him tomorrow Qualifiers: Encounter type: initial encounter Fracture type: closed Fracture morphology: unspecified fracture morphology Fracture alignment: nondisplaced Qualified Code: S12.501A - Closed nondisplaced fracture of sixth cervical vertebra, unspecified fracture morphology, initial encounter (2) Hypertension Status: Chronic Comment: Adequate control Qualifiers: Hypertension type: essential hypertension Qualified Code: I10 - Essential hypertension (3) Post traumatic seizure disorder Status: Chronic Comment: Stable and controlled without activity (4) Other hyperlipidemia Status: Chronic Comment: On full treatment Subjective 24 Hr Interval Summary Free Text/Dictation Patient is not wearing his collar today. He reports he is feeling better. Constitutional: no complaints Respiratory: no complaints Cardiovascular: no complaints Gastrointestinal: no complaints Musculoskeletal: neck pain Neurologic: no complaints (No new and no changes) Exam/Review of Systems Vital Signs Vitals Vital Signs Date Time Temp Pulse Resp B/P Pulse Ox O2 Delivery O2 Flow Rate FiO2 04/10/17 12:11 81 04/10/17 11:54 98.6 18 120/83 95 04/08/17 20:29 Room Air Intake and Output 04/09/17 04/09/17 04/10/17 15:00 23:00 07:00 Intake Total 360 ml 240 ml Output Total 475 ml 300 ml Balance -115 ml -60 ml Exam Constitutional: alert, oriented Neck: non-tender, supple Respiratory: clear to auscultation, normal air movement Cardiovascular: nl pulses, regular rate and rhythm Gastrointestinal: nl liver, spleen, non-tender, soft Results Result Diagram: 04/09/17 0526 04/09/17525 Medications Medications Current Medications Acetaminophen (Tylenol Tab) 650 mg Q6H PRN PO PAIN LEVEL 1-3 OR FEVER; Start at 17:00 Acetaminophen/ Hydrocodone Bitart ([place] (5/325)) 1 tab Q6H PRN PO PAIN LEVEL 4 -6; Start 04/08/17 at 17:00 Docusate Sodium (Colace) 100 mg Q12H PRN PO CONSTIPATION; Start 04/08/17 at 17: 00 Bisacodyl (Dulcolax) 5 mg DAILY PRN PO CONSTIPATION; Start 04/08/17 at 17:00 Pantoprazole (Protonix Tab) 40 mg DAILY@06 PO Last administered on 04/10/17 05 :32; Admin Dose 40 MG; Start 04/09/17 at 06:00 Carbamazepine (Tegretol) 200 mg TID PO Last administered on 04/10/17 12:37; Admin Dose 200 MG; Start 04/08/17 at 21:00 Folic Acid (Folic Acid) 1 mg DAILY PO Last administered on 04/10/17 08:22; Admin Dose 1 MG; Start 04/09/17 at 09:00 Gabapentin (Neurontin) 800 mg TID PO Last administered on 04/10/17 12:37; Admin Dose 800 MG; Start 04/08/17 at 21:00 Levetiracetam (Keppra) 1,500 mg BID PO Last administered on 04/10/17 08:22; Admin Dose 1,500 MG; Start 04/08/17 at 21:00 Lisinopril (Zestril) 20 mg DAILY PO Last administered on 04/10/17 08:23; Admin Dose 20 MG; Start 04/09/17 at 09:00 Miscellaneous Medication (Bystolic) 5 mg DAILY PO Last administered on 08:21; Admin Dose 5 MG; Start 04/09/17 at 09:00 Fish Oil (Fish Oil) 2,000 mg BID PO Last administered on 04/10/17 08:21; Admin Dose 2,000 MG; Start 04/08/17 at 21:00 Atorvastatin Calcium (Lipitor) 40 mg QHS PO Last administered on 04/09/17 20: 25; Admin Dose 40 MG; Start 04/08/17 at 21:00 Vitamin B Complex/ Vitamin C ([place]) 1 cap DAILY PO Last administered on 04/10t 08:20; Admin Dose 1 CAP; Start 04/09/17 at 09:00 KAJAL WU MD Apr 10, 2017 13:48
[2017-04-10] MEDS: ATORVASTATIN 40 MG TAB PO SCH (20:15)
[2017-04-11] VITALS (12 sets, daily range): BP systolic 108–159; BP diastolic 69–100; PULSE 79–82; RESP 16–19
[2017-04-11] MEDS: PANTOPRAZOLE (EC) 40 MG TAB PO SCH (05:16)
[2017-04-11] MEDS: VITAMIN B COMPLEX/VIT C CAP PO SCH (08:12)
[2017-04-11] MEDS: NEBIVOLOL 5 MG TAB PO SCH (08:13)
[2017-04-11] MEDS: FOLIC ACID 1 MG TAB PO SCH (08:13)
[2017-04-11] MEDS: LEVETIRACETAM 500 MG TAB PO SCH ×2 (08:13→20:25)
[2017-04-11] MEDS: FISH OIL 1,000 MG CAP PO SCH ×2 (08:13→20:25)
[2017-04-11] MEDS: GABAPENTIN 400 MG CAP PO SCH ×3 (08:14→20:25)
[2017-04-11] MEDS: carBAMAZepine CHEW 100 MG CHEW PO SCH ×3 (08:14→20:25)
[2017-04-11] MEDS: LISINOPRIL 20 MG TAB PO SCH (08:15)
--- NOTE | 2017-04-11 14:11 | PN ---
Date/Time of Note Date/Time of Note DATE: 04/11/17 TIME: 14:07 Assessment/Plan VTE Prophylaxis VTE Prophylaxis Intervention: SCD's Lines/Catheters IV Catheter Type (from Nrs): Saline Lock Urinary Cath still in place: No Assessment/Plan Problems: (1) Hyperlipidemia Status: Chronic Comment: On statin therapy and stable Qualifiers: Hyperlipidemia type: pure hypercholesterolemia Qualified Code: E78.00 - Pure hypercholesterolemia (2) Essential hypertension Status: Chronic Comment: Well-controlled (3) Post traumatic seizure disorder Status: Chronic Comment: Remains without evidence of seizure activity long-term (4) C6 cervical fracture Status: Acute Comment: This is more of a cervical ligament strain as this fracture is old. Will be discharged in the morning. Qualifiers: Encounter type: initial encounter Fracture type: closed Fracture morphology: unspecified fracture morphology Fracture alignment: nondisplaced Qualified Code: S12.501A - Closed nondisplaced fracture of sixth cervical vertebra, unspecified fracture morphology, initial encounter (5) Facial contusion Status: Acute Comment: Stable. No evidence of intracranial pathology Qualifiers: Encounter type: initial encounter Qualified Code: S00.83XA - Facial contusion, initial encounter Subjective 24 Hr Interval Summary Constitutional: no complaints Eyes: no complaints Respiratory: no complaints Cardiovascular: no complaints Gastrointestinal: no complaints Genitourinary: no complaints Neurologic: no complaints Exam/Review of Systems Vital Signs Vitals Vital Signs Date Time Temp Pulse Resp B/P Pulse Ox O2 Delivery O2 Flow Rate FiO2 04/11/17 12:26 82 04/11/17 11:34 97.6 18 159/99 96 04/08/17 20:29 Room Air Intake and Output 04/10/17 04/10/17 04/11/17 15:00 23:00 07:00 Intake Total 600 ml 120 ml Output Total 200 ml Balance 600 ml -80 ml Exam Constitutional: alert, oriented Respiratory: clear to auscultation, normal air movement Cardiovascular: nl pulses, regular rate and rhythm Gastrointestinal: nl liver, spleen, non-tender, soft Results Result Diagram: 04/09/17 0526 04/09/17 05 Medications Medications Current Medications Acetaminophen (Tylenol Tab) 650 mg Q6H PRN PO PAIN LEVEL 1-3 OR FEVER; Start at 17:00 Acetaminophen/ Hydrocodone Bitart ([place] (5/325)) 1 tab Q6H PRN PO PAIN LEVEL 4 -6; Start 04/08/17 at 17:00 Docusate Sodium (Colace) 100 mg Q12H PRN PO CONSTIPATION; Start 04/08/17 at 17: 00 Bisacodyl (Dulcolax) 5 mg DAILY PRN PO CONSTIPATION; Start 04/08/17 at 17:00 Pantoprazole (Protonix Tab) 40 mg DAILY@06 PO Last administered on 04/11/17 05 :16; Admin Dose 40 MG; Start 04/09/17 at 06:00 Carbamazepine (Tegretol) 200 mg TID PO Last administered on 04/11/17 12:08; Admin Dose 200 MG; Start 04/08/17 at 21:00 Folic Acid (Folic Acid) 1 mg DAILY PO Last administered on 04/11/17 08:13; Admin Dose 1 MG; Start 04/09/17 at 09:00 Gabapentin (Neurontin) 800 mg TID PO Last administered on 04/11/17 12:07; Admin Dose 800 MG; Start 04/08/17 at 21:00 Levetiracetam (Keppra) 1,500 mg BID PO Last administered on 04/11/17 08:13; Admin Dose 1,500 MG; Start 04/08/17 at 21:00 Lisinopril (Zestril) 20 mg DAILY PO Last administered on 04/11/17 08:15; Admin Dose 20 MG; Start 04/09/17 at 09:00 Miscellaneous Medication (Bystolic) 5 mg DAILY PO Last administered on 08:13; Admin Dose 5 MG; Start 04/09/17 at 09:00 Fish Oil (Fish Oil) 2,000 mg BID PO Last administered on 04/11/17 08:13; Admin Dose 2,000 MG; Start 04/08/17 at 21:00 Atorvastatin Calcium (Lipitor) 40 mg QHS PO Last administered on 04/10/17 20: 15; Admin Dose 40 MG; Start 04/08/17 at 21:00 Vitamin B Complex/ Vitamin C ([place]) 1 cap DAILY PO Last administered on 04/11 08:12; Admin Dose 1 CAP; Start 04/09/17 at 09:00 KAJAL WU MD Apr 11, 2017 14:10
[2017-04-11] MEDS: ATORVASTATIN 40 MG TAB PO SCH (20:25)
[2017-04-12] VITALS: BP 122/79; RESP 20
[2017-04-12 00:23] VITALS: PULSE 78
[2017-04-12 04:00] VITALS: BP 109/75; RESP 20
[2017-04-12 04:43] VITALS: PULSE 77
[2017-04-12] MEDS: PANTOPRAZOLE (EC) 40 MG TAB PO SCH (05:41)
[2017-04-12 07:23] VITALS: BP 114/78; RESP 18
[2017-04-12] MEDS: FISH OIL 1,000 MG CAP PO SCH (08:02)
[2017-04-12] MEDS: GABAPENTIN 400 MG CAP PO SCH (08:03)
[2017-04-12] MEDS: VITAMIN B COMPLEX/VIT C CAP PO SCH (08:03)
[2017-04-12] MEDS: NEBIVOLOL 5 MG TAB PO SCH (08:03)
[2017-04-12] MEDS: carBAMAZepine CHEW 100 MG CHEW PO SCH (08:04)
[2017-04-12] MEDS: LISINOPRIL 20 MG TAB PO SCH (08:04)
[2017-04-12] MEDS: FOLIC ACID 1 MG TAB PO SCH (08:04)
[2017-04-12] MEDS: LEVETIRACETAM 500 MG TAB PO SCH (08:07)
[2017-04-12 08:14] VITALS: PULSE 92
--- NOTE | 2017-04-12 08:46 | PDOCDIS ---
Discharge Instructions DIAGNOSIS Discharge Diagnosis Seizure disorder; history of traumatic injury with left hemiparesis age 6 months ; modest ambulatory instability; status post fall with closed head trauma and cervical spine ligamentous injury; history of old C6 fracture CONDITION Patient Condition: Fair HOME CARE INSTRUCTIONS: Special Diet: regular ACTIVITY: Activity Restrictions: Slowly Increase Activity Avoid heavy lifting Do not operate Machinery Do not operate Power Tool Avoid Heavy Housework FOLLOW UP/APPOINTMENTS Follow-up Plan To acute rehabilitation unit. He will go through rehab and be seen in follow- up by neurosurgery there KAJAL WU MD Apr 12, 2017 08:45
--- NOTE | 2017-04-12 08:49 | DS ---
Date/Time of Note Date/Time of Note DATE: 04/12/17 TIME: 08:47 Discharge Summary Admission/Discharge Info Admit Date/Time Apr 08, 2017 at 16:37 Discharge Date/Time April 12, 2017 Discharge Diagnosis Seizure disorder; history of traumatic injury with left hemiparesis age 6 months ; modest ambulatory instability; status post fall with closed head trauma and cervical spine ligamentous injury; history of old C6 fracture Patient Condition: Fair Consults Neurosurgery-Dr. Myers Procedures CT scan neck MRI scan neck physical therapy Hx of Present Illness Late entry [facility] 62-year-old single male who has a history of a traumatic brain injury requiring resulting in a left hemiparesis upper extremity for greater than lower extremity. He does have a history of occasional falls. He was climbing up the stairs at his residence and caught his foot at the top step falling forward and hitting his head against a gate. This snapped his head back and resulted in a crunching sound and immediate pain. He did not have any neurologic changes or new issues. Is brought to the emergency room where is been found to have a C6 fracture. Hospital Course 62 year old male with history of multiple prior falls presented to ED after fall down stairs. CTH negative. CT c-spine positive for multilevel degenerative disease, reversal of lordosis, and chronic fracture (withe sclerotic margins) of anterior vertebral body- superior endplate of C6. There is no significant loss of height. 62-year-old vibrant gentleman who had an accidental fall at his residence. He was placed in a collar and observe carefully. He did improve modestly with pain. It was recommended he be evaluated for physical therapy and rehabilitation. He is to wear his neck brace during physical activities. Otherwise he is stable and now can go to the acute rehabilitation unit. He is to be followed up at the [address] Myers of neurosurgery in 2 weeks Home Meds Active Scripts Ibuprofen* (Motrin*) 400 Mg Tab, 400 MG PO Q8, #30 TAB Prov:DAMASO CONNORS 09/06/15 Reported Medications Omeprazole* (Omeprazole*) 20 Mg Capsule., 20 MG PO DAILY, #30 CAP 09/06/15 Icosapent Ethyl (VASCEPA) 1 Gm Capsule, 2 GM PO BID, CAP 09/06/15 Gabapentin* (Gabapentin*) 800 Mg Tablet, 800 MG PO TID, TAB 09/06/15 Carbamazepine* (Carbamazepine*) 100 Mg Tab.chew, 200 MG PO TID, TAB.CHEW 09/06/15 Aspirin* (Aspirin* EC) 325 Mg Tab, 325 MG PO DAILY, TAB 09/06/15 Levetiracetam* (Keppra*) 1,000 Mg Tablet, 1500 MG PO BID, TAB 03/21/14 Vitamin B Complex (B Complex) 1 Tab.sa Tablet.sa, 1 TAB.SA PO DAILY 07/04/13 Simvastatin (Simvastatin) 40 Mg Tablet, 40 MG PO DAILY 07/04/13 Lisinopril* (Lisinopril*) 10 Mg Tablet, 20 MG PO DAILY 07/04/13 Folic Acid* (Folic Acid*) 1 Mg Tablet, 1 MG PO DAILY 07/04/13 Nebivolol* (Bystolic*) 5 Mg Tab, 5 MG PO DAILY 07/04/13 Primary Care Provider Kajal Lema MD Time spent on discharge: > 30 minutes KAJAL LEMA MD Apr 12, 2017 08:48
== END 2017-04-12 11:14 | DRG 552 ==
LOC: FTE 13:09 → TEL 16:37
PROVIDERS: ADMIT Internal Medicine; ATTEND Internal Medicine
DX: S12.501A Unspecified nondisplaced fracture of sixth cervical vertebra, initial encounter for closed fracture (principal); R56.1 Post traumatic seizures; S09.90XA Unspecified injury of head, initial encounter; G81.94 Hemiplegia, unspecified affecting left nondominant side; W10.8XXA Fall (on) (from) other stairs and steps, initial encounter; S00.01XA Abrasion of scalp, initial encounter; S00.532A Contusion of oral cavity, initial encounter; S00.12XA Contusion of left eyelid and periocular area, initial encounter; X58.XXXD Exposure to other specified factors, subsequent encounter; I10 Essential (primary) hypertension; R26.89 Other abnormalities of gait and mobility; Y92.9 Unspecified place or not applicable; E78.5 Hyperlipidemia, unspecified; S06.9X0D Unspecified intracranial injury without loss of consciousness, subsequent encounter; Z91.81 History of falling
CPT/HCPCS: 70450; 70486; 72125; 80053; 84484; 85025; 85730; 93005; 97163

== ENCOUNTER 2017-04-12 11:30 | Inpatient (IN) | payer MEDICARE, OTHER ==
[~2017-04-12] VITALS: Ht 170.2 cm; Wt 66.0 kg
[2017-04-12 11:43] VITALS: BP 119/71; PULSE 92; RESP 18
[2017-04-12 13:40] LABS: ADD UMIC NO; UR ASCORBIC ACID NEGATIVE (NEGATIVE); UR BILIRUBIN (Dip) NEGATIVE (NEGATIVE); UR BLOOD (Dip) NEGATIVE (NEGATIVE); UR CLARITY CLEAR (CLEAR); UR COLOR YELLOW (YELLOW); UR GLUCOSE (Dip) NEGATIVE (NEGATIVE); UR KETONES (Dip) NEGATIVE (NEGATIVE); UR LEUKOCYTE ESTERASE (Dip) NEGATIVE Leu/ul (NEGATIVE); UR NITRITE (Dip) NEGATIVE (NEGATIVE); UR SPECIFIC GRAVITY (Dip) 1.006 (1.003-1.030); UR TOTAL PROTEIN (Dip) NEGATIVE (NEGATIVE); UR UROBILINOGEN (Dip) NEGATIVE (NEGATIVE)
[2017-04-12 14:13] VITALS: Ht 170.2 cm; Wt 66.0 kg
[2017-04-12] MEDS: GABAPENTIN 400 MG CAP PO SCH ×2 (14:24→21:12)
[2017-04-12] MEDS ORDERED: ACETAMINOPHEN 325 MG TAB PO PRN (14:30)
[2017-04-12] MEDS ORDERED: BISACODYL (EC) 5 MG TAB PO PRN (14:30)
[2017-04-12] MEDS ORDERED: DOCUSATE SODIUM 100 MG CAP PO PRN (14:30)
[2017-04-12] MEDS ORDERED: HYDROCODONE/APAP (5/325) TAB PO PRN (14:30)
[2017-04-12] MEDS ORDERED: NACL 0.9% 3 ML SYG IV SCH (14:30)
[2017-04-12] MEDS: CARBAMAZEPINE 200 MG TAB PO SCH ×2 (16:55→21:13)
[2017-04-12 20:00] VITALS: BP 148/100; RESP 19
[2017-04-12] MEDS: ATORVASTATIN 40 MG TAB PO SCH (21:13)
[2017-04-12] MEDS: FISH OIL 1,000 MG CAP PO SCH (21:13)
[2017-04-12] MEDS: LEVETIRACETAM 750 MG TAB PO SCH (21:14)
[2017-04-12 22:20] VITALS: BP 153/90
[2017-04-13 02:00] VITALS: BP 127/84; RESP 18
[2017-04-13] MEDS: PANTOPRAZOLE (EC) 40 MG TAB PO SCH (06:32)
[2017-04-13 07:26] LABS: ADD SCAN DIFF NO
[2017-04-13 07:30] VITALS: BP 118/84; RESP 18
[2017-04-13 07:30] LABS: BASOPHIL # 0.1 10^3/ul (0.0-0.1); BASOPHILS % 1.3 % (0.0-2.0); EOSINOPHILS # 0.2 10^3/ul (0.0-0.5); EOSINOPHILS % 4.5 % (0.0-7.0); HEMATOCRIT 35.8 % (42.0-52.0); HEMOGLOBIN 12.3 g/dl (14.0-18.0); LYMPHOCYTES # 1.6 10^3/ul (0.8-2.9); LYMPHOCYTES % 29.9 % (15.0-51.0); MEAN CORPUSCULAR HEMOGLOBIN 31.5 pg (29.0-33.0); MEAN CORPUSCULAR HGB CONC 34.4 g/dl (32.0-37.0); MEAN CORPUSCULAR VOLUME 91.8 fl (82.0-101.0); MEAN PLATELET VOLUME 9.7 fl (7.4-10.4); MONOCYTE # 0.5 10^3/ul (0.3-0.9); MONOCYTES % 8.8 % (0.0-11.0); NEUTROPHILS % 55.1 % (39.0-77.0); PLATELET COUNT 154 10^3/UL (140-415); WHITE BLOOD COUNT 5.4 10^3/ul (4.8-10.8)
[2017-04-13 08:15] LABS: ALBUMIN 3.6 g/dl (3.3-4.9); ALBUMIN/GLOBULIN RATIO 1.33; BILIRUBIN,INDIRECT 0.3 mg/dl (0-1.1); BILIRUBIN,TOTAL 0.3 mg/dl (0.2-1.3); CREATININE 0.61 mg/dl (0.61-1.24); POTASSIUM 4.1 mmol/L (3.5-5.1); TOTAL PROTEIN 6.3 g/dl (6.1-8.1)
[2017-04-13] MEDS: LEVETIRACETAM 750 MG TAB PO SCH ×2 (08:47→20:39)
[2017-04-13] MEDS: FISH OIL 1,000 MG CAP PO SCH ×2 (08:47→20:39)
[2017-04-13] MEDS: GABAPENTIN 400 MG CAP PO SCH ×3 (08:47→20:39)
[2017-04-13] MEDS: FOLIC ACID 1 MG TAB PO SCH (08:54)
[2017-04-13] MEDS: VITAMIN B COMPLEX/VIT C CAP PO SCH (08:54)
[2017-04-13] MEDS: ASPIRIN (EC) 325 MG TAB PO SCH (08:54)
[2017-04-13] MEDS: NEBIVOLOL 5 MG TAB PO SCH (08:55)
[2017-04-13] MEDS ORDERED: LISINOPRIL 20 MG TAB PO SCH (09:00)
[2017-04-13] MEDS: LISINOPRIL 20 MG TAB PO SCH (09:00)
[2017-04-13] MEDS: CARBAMAZEPINE 200 MG TAB PO SCH ×3 (09:00→20:40)
--- NOTE | 2017-04-13 12:42 | CONS ---
Date/Time of Note Date/Time of Note DATE: 04/13/17 TIME: 12:27 Assessment/Plan Assessment/Plan Additional Assessment/Plan Rehabilitation post admission physician evaluation: Rehabilitation Impairment Category: Other orthopedic injury with C6 vertebral body fracture Active comorbidities: 1. Traumatic brain injury since childhood with persistent left-sided weakness 2. Seizure disorder 3. Hyperlipidemia 4. Impairments in self-care and mobility Patient was admitted for conference of interdisciplinary acute rehab and is anticipated to tolerate 3 hours of daily therapy in divided doses for at least 5 out of 7 days a week. Treatment plan will include: 1. Physical therapy to focus on bed mobility transfers and household ambulation with goal of having patient reach supervised to modified independent level 2. Occupational therapy to focus on hygiene grooming dressing bathing and toileting activities with the goal of having patient reach supervised to modified independent level 3. Rehabilitation nursing for carryover of therapeutic interventions to the left continent of bowel and bladder and the goal of pain adequately managed on oral medications Rehabilitation barrier: Residual left-sided weakness Intervention for barrier: Complaints of interdisciplinary rehab, evaluation for bracing Disposition:: Home with home health follow-up Estimated length of stay: 10 days Treatment plan has been reviewed with the patient patient is agreeable with the treatment plan and is anticipated to make reasonable goals in a reasonable period of time as outlined above. Consultation Date/Type/Reason Admit Date/Time Apr 12, 2017 at 11:30 Type of Consultation: Rehabilitation Reason for Consultation Rehabilitation post admission physician evaluation Hx of Present Illness Patient is a pleasant 62-year-old gentleman with a history of traumatic brain injury as a child with resultant residual left-sided weakness who is status post a mechanical fall while climbing up his stairs at home. Patient noted immediate neck pain. Patient was admitted to the hospital where he was noted to have a C6 cervical fracture. Patient was evaluated by neurosurgery and recommended to have a cervical collar 2 weeks for out of bed. Patient noted to have significant impairments in self-care and mobility as compared to baseline and has been cleared to transfer to the rehabilitation unit for comprehensive interdisciplinary rehab care Constitutional: No chills, No diaphoresis, No disoriented, No febrile, No improved, No no complaints, No other, No poor po, No requiring IVF, No requiring O2 Eyes: No discharge, No no complaints, No other, No pain, No redness, No visual change Respiratory: No cough, No no complaints, No other, No pain, No pleuritic pain, No shortness of breath, No sputum, No wheezing Cardiovascular: No chest pain Gastrointestinal: constipation, No blood, No decreased appetite, No diarrhea, No flatus, No nausea, No no complaints, No other, No pain, No passing stool, No vomiting Genitourinary: No bleeding, No discharge, No dysuria, No flank pain, No hematuria, No no complaints, No other Past Medical History 1. Traumatic brain injury as a child with residual left-sided weakness 2. Hyper lipedema 3. Seizure disorder Functional history: Prior to recent events patient was independent self-care tasks and mobility Current functional: Minimal to moderate assist Have reviewed the preadmission screen and patient's current functional status is consistent with the preadmission screen Exam/Review of Systems Vital Signs Vitals Vital Signs Date Time Temp Pulse Resp B/P Pulse Ox O2 Delivery O2 Flow Rate FiO2 04/13/17 07:30 97.6 90 18 118/84 96 04/12/17 11:43 Room Air Intake and Output 04/12/17 04/12/17 04/13/17 15:00 23:00 07:00 Intake Total 1020 ml 120 ml Output Total 400 ml 850 ml Balance 620 ml -730 ml Exam Neurologically the patient is awake and alert and oriented to person and hospital and date. He follows simple one-step command. He demonstrates good strength in the right upper and lower extremity. Left upper extremity is flexed abducted with weakness and increased tone. Left lower extremity with antigravity hip flexion extension knee flexion extension and decreased dorsiflexion. Constitutional: No alert, No distress, No frail, No non-verbal, No obese, No oriented, No other, No well developed Psych: No anxiety, No confusion, No depression, No nl mood/affect, No no complaints, No other, No suicidal ENMT: No intubated, No mucosa pink and moist, No nl external ears & nose, No nl lips & teeth, No nl nasal mucosa & septum, No other, No tympanic membranes Neck: No bruits, No jvd, No masses, No non-tender, No nuchal rigidity, No other , No supple, No thyromegaly Respiratory: No clear to auscultation, No congested cough, No crackles/rales, No diminished breath sounds, No intercostal retraction, No labored breathing, No normal air movement, No other, No respirations, No tactile fremitus, No wheezing Cardiovascular: regular rate and rhythm Genitourinary - Male: No CVA tenderness, No discharge, No nl penis, No nl scrotum, No other Musculoskeletal: joint tenderness, muscle tone, muscle weakness, nl extremities to inspection, nl gait and stance, other (patient with LUE flexed and adducted with weakness and increased tone,), range of motion, spine non- tender, swelling Extremities: other, pitting pedal edema Results Result Diagram: 04/13/1764304/13/17643 Results 24 hrs Laboratory Tests Test 04/13/17 06:44 White Blood Count 5.4 Red Blood Count 3.90 L Hemoglobin 12.3 L Hematocrit 35.8 L Mean Corpuscular Volume 91.8 Mean Corpuscular Hemoglobin 31.5 Mean Corpuscular Hemoglobin Concent 34.4 Red Cell Distribution Width 12.0 Platelet Count 154 Mean Platelet Volume 9.7 Neutrophils % 55.1 Lymphocytes % 29.9 Monocytes % 8.8 Eosinophils % 4.5 Basophils % 1.3 Neutrophils # 3.0 Lymphocytes # 1.6 Monocytes # 0.5 Eosinophils # 0.2 Basophils # 0.1 Nucleated Red Blood Cells # 0.0 Sodium Level 143 Potassium Level 4.1 Chloride Level 101 Carbon Dioxide Level 30 Anion Gap 16 Blood Urea Nitrogen 14 Creatinine 0.61 Glucose Level 83 Calcium Level 9.0 Total Bilirubin 0.3 Direct Bilirubin 0.00 Indirect Bilirubin 0.3 Aspartate Amino Transf (AST/SGOT) 25 Alanine Aminotransferase (ALT/SGPT) 37 Alkaline Phosphatase 73 Total Protein 6.3 Albumin 3.6 Globulin 2.70 Albumin/Globulin Ratio 1.33 Medications Medications Current Medications Pantoprazole (Protonix Tab) 40 mg DAILY@06 PO Last administered on 04/13/17 06 :32; Admin Dose 40 MG; Start 04/13/17 at 06:00 Vitamin B Complex/ Vitamin C (Berocca) 1 cap DAILY PO Last administered on 04/13 08:54; Admin Dose 1 CAP; Start 04/13/17 at 09:00 Aspirin (Ecotrin) 325 mg DAILY PO Last administered on 04/13/17 08:54; Admin Dose 325 MG; Start 04/13/17 at 09:00 Gabapentin (Neurontin) 800 mg TID PO Last administered on 04/13/17 08:47; Admin Dose 800 MG; Start 04/12/17 at 14:01 Acetaminophen/ Hydrocodone Bitart ([place] (5/325)) 1 tab Q6H PRN PO PAIN; Start 04/12/17 at 14:30 Levetiracetam (Keppra) 1,500 mg BID PO Last administered on 04/13/17 08:47; Admin Dose 1,500 MG; Start 04/12/17 at 21:00 Miscellaneous Medication (Bystolic) 5 mg DAILY PO Last administered on 08:55; Admin Dose 5 MG; Start 04/13/17 at 09:00 Acetaminophen (Tylenol Tab) 650 mg Q6H PRN PO PAIN AND OR ELEVATED TEMP; Start 04/12/17 at 14:30 Atorvastatin Calcium (Lipitor) 40 mg DAILY@21 PO Last administered on 21:13; Admin Dose 40 MG; Start 04/12/17 at 21:00 Bisacodyl (Dulcolax) 5 mg DAILY PRN PO CONSTIPATION; Start 04/12/17 at 14:30 Carbamazepine (Tegretol) 200 mg TID PO Last administered on 04/13/17 09:00; Admin Dose 200 MG; Start 04/12/17 at 14:05 Docusate Sodium (Colace) 100 mg Q12H PRN PO CONSTIPATION; Start 04/12/17 at 14: 30 Fish Oil (Fish Oil) 2,000 mg BID PO Last administered on 04/13/17 08:47; Admin Dose 2,000 MG; Start 04/12/17 at 21:00 Folic Acid (Folic Acid) 1 mg DAILY PO Last administered on 04/13/17 08:54; Admin Dose 1 MG; Start 04/13/17 at 09:00 Lisinopril (Zestril) 40 mg DAILY PO ; Start 04/13/17 at 09:00 MAHESH JAMESON MD Apr 13, 2017 12:37
[2017-04-13 14:00] VITALS: BP 123/83; RESP 18
[2017-04-13 19:58] VITALS: BP 125/80; RESP 18
[2017-04-13] MEDS: ATORVASTATIN 40 MG TAB PO SCH (20:40)
[2017-04-14 02:00] VITALS: BP 128/82; RESP 18
[2017-04-14] MEDS: PANTOPRAZOLE (EC) 40 MG TAB PO SCH (06:00)
[2017-04-14 07:44] VITALS: BP 122/90; RESP 20
[2017-04-14] MEDS: FISH OIL 1,000 MG CAP PO SCH ×2 (08:55→20:30)
[2017-04-14] MEDS: GABAPENTIN 400 MG CAP PO SCH ×3 (08:55→20:30)
[2017-04-14] MEDS: FOLIC ACID 1 MG TAB PO SCH (08:55)
[2017-04-14] MEDS: VITAMIN B COMPLEX/VIT C CAP PO SCH (08:55)
[2017-04-14] MEDS: LEVETIRACETAM 750 MG TAB PO SCH ×2 (08:55→20:30)
[2017-04-14] MEDS: NEBIVOLOL 5 MG TAB PO SCH (08:56)
[2017-04-14] MEDS: LISINOPRIL 20 MG TAB PO SCH (08:56)
[2017-04-14] MEDS: ASPIRIN (EC) 325 MG TAB PO SCH (08:56)
[2017-04-14] MEDS: CARBAMAZEPINE 200 MG TAB PO SCH ×3 (08:56→20:31)
[2017-04-14 08:58] VITALS: BP 111/78; PULSE 76; RESP 16
--- NOTE | 2017-04-14 10:19 | PN ---
Date/Time of Note Date/Time of Note DATE: 04/14/17 TIME: 10:11 Assessment/Plan VTE Prophylaxis VTE Prophylaxis Intervention: ambulation, SCD's, other Lines/Catheters Urinary Cath still in place: No Assessment/Plan Assessment/Plan 1. History of falls with nondisplaced C6 vertebral body fracture, with impaired mobility, gait and ADLs. Continue conservative treatment per NSGY. Continue cervical collar. Continue PT/OT. CGA for bed mobility and transfers. 2. Traumatic brain injury since childhood with left-sided hemiparesis, spasticity and joint contractures. 3. Seizure disorder. Continue medical management. Maintain seizure precautions. 4. Hyperlipidemia. Continue statin. 5. Anemia. Continue to monitor hemoglobin/hematocrit. 6. Hypertension. BP controlled. Continue medical management per internal medicine. Subjective 24 Hr Interval Summary Free Text/Dictation Rehab progress note Subjective: Denies any acute complaints. Denies neck pain. ROS: Denies headache, no dizziness, no new paresthesias, no chest pain, no shortness of breath, no abdominal pain. Exam/Review of Systems Vital Signs Vitals Vital Signs Date Time Temp Pulse Resp B/P Pulse Ox O2 Delivery O2 Flow Rate FiO2 04/14/17 08:58 76 16 111/78 97 Room Air 04/14/17 07:44 97.5 Intake and Output 04/13/17 04/13/17 04/14/17 15:00 23:00 07:00 Intake Total 840 ml 700 ml Output Total 450 ml Balance 390 ml 700 ml Exam General: Awake, alert, no acute distress Neck: Cervical collar in place CV: Regular rate, s1s2 Lungs: Clear to auscultation, no wheezing Abdomen soft, nontender Extremities without cyanosis, no distal edema Neuro/MSK: Left sided hemiparesis. LUE with joint contractures. Results Result Diagram: 04/13/1764304/13/17643 Medications Medications Current Medications Pantoprazole (Protonix Tab) 40 mg DAILY@06 PO Last administered on 04/14/17 06 :00; Admin Dose 40 MG; Start 04/13/17 at 06:00 Vitamin B Complex/ Vitamin C (Berocca) 1 cap DAILY PO Last administered on 04/14 08:55; Admin Dose 1 CAP; Start 04/13/17 at 09:00 Aspirin (Ecotrin) 325 mg DAILY PO Last administered on 04/14/17 08:56; Admin Dose 325 MG; Start 04/13/17 at 09:00 Gabapentin (Neurontin) 800 mg TID PO Last administered on 04/14/17 08:55; Admin Dose 800 MG; Start 04/12/17 at 14:01 Acetaminophen/ Hydrocodone Bitart ([place] (5/325)) 1 tab Q6H PRN PO PAIN; Start 04/12/17 at 14:30 Levetiracetam (Keppra) 1,500 mg BID PO Last administered on 04/14/17 08:55; Admin Dose 1,500 MG; Start 04/12/17 at 21:00 Miscellaneous Medication (Bystolic) 5 mg DAILY PO Last administered on 08:56; Admin Dose 5 MG; Start 04/13/17 at 09:00 Acetaminophen (Tylenol Tab) 650 mg Q6H PRN PO PAIN AND OR ELEVATED TEMP; Start 04/12/17 at 14:30 Atorvastatin Calcium (Lipitor) 40 mg DAILY@21 PO Last administered on 20:40; Admin Dose 40 MG; Start 04/12/17 at 21:00 Bisacodyl (Dulcolax) 5 mg DAILY PRN PO CONSTIPATION; Start 04/12/17 at 14:30 Carbamazepine (Tegretol) 200 mg TID PO Last administered on 04/14/17 08:56; Admin Dose 200 MG; Start 04/12/17 at 14:05 Docusate Sodium (Colace) 100 mg Q12H PRN PO CONSTIPATION; Start 04/12/17 at 14: 30 Fish Oil (Fish Oil) 2,000 mg BID PO Last administered on 04/14/17 08:55; Admin Dose 2,000 MG; Start 04/12/17 at 21:00 Folic Acid (Folic Acid) 1 mg DAILY PO Last administered on 04/14/17 08:55; Admin Dose 1 MG; Start 04/13/17 at 09:00 Lisinopril (Zestril) 40 mg DAILY PO ; Start 04/13/17 at 09:00 COLLINS ALLEN Apr 14, 2017 10:19
[2017-04-14 11:49] VITALS: BP 104/57; PULSE 78; RESP 14
[2017-04-14 14:00] VITALS: BP 103/78; RESP 18
--- NOTE | 2017-04-14 16:36 | PN ---
Date/Time of Note Date/Time of Note DATE: 04/14/17 TIME: 16:32 Assessment/Plan VTE Prophylaxis VTE Prophylaxis Intervention: ambulation Lines/Catheters Central line still needed: No Urinary Cath still in place: No Assessment/Plan Problems: (1) Head injury Status: Chronic Comment: childhood brain injury with resultant left sided weakness and contracture (2) Post traumatic seizure disorder Status: Chronic Comment: No seizure activity last 24 hours (3) Hypertension Status: Chronic Comment: Decent control (4) C6 cervical fracture Status: Acute Comment: Management per Neurosurgery and ARU Subjective 24 Hr Interval Summary Free Text/Dictation Patient denies pain. States neck a little stiff. Per Rn Kun patient up walking today with collar on. Exam/Review of Systems Vital Signs Vitals Vital Signs Date Time Temp Pulse Resp B/P Pulse Ox O2 Delivery O2 Flow Rate FiO2 04/14/17 14:00 83 18 103/78 96 04/14/17 11:49 Room Air 04/14/17 07:44 97.5 Intake and Output 04/13/17 04/13/17 04/14/17 15:00 23:00 07:00 Intake Total 840 ml 700 ml Output Total 450 ml Balance 390 ml 700 ml Exam Constitutional: alert, oriented Psych: nl mood/affect, no complaints Eyes: EOMI, PERRL, nl conjunctiva Respiratory: clear to auscultation Cardiovascular: regular rate and rhythm Musculoskeletal: other (left upper extremity contracture) Results Labs and vitals reviewed Result Diagram: 04/13/17 0644 04/13/17 0644 Medications Medications Current Medications Pantoprazole (Protonix Tab) 40 mg DAILY@06 PO Last administered on 04/14/17 06 :00; Admin Dose 40 MG; Start 04/13/17 at 06:00 Vitamin B Complex/ Vitamin C (Berocca) 1 cap DAILY PO Last administered on 04/14 08:55; Admin Dose 1 CAP; Start 04/13/17 at 09:00 Aspirin (Ecotrin) 325 mg DAILY PO Last administered on 04/14/17 08:56; Admin Dose 325 MG; Start 04/13/17 at 09:00 Gabapentin (Neurontin) 800 mg TID PO Last administered on 04/14/17 12:37; Admin Dose 800 MG; Start 04/12/17 at 14:01 Acetaminophen/ Hydrocodone Bitart ([place] (5/325)) 1 tab Q6H PRN PO PAIN; Start 04/12/17 at 14:30 Levetiracetam (Keppra) 1,500 mg BID PO Last administered on 04/14/17 08:55; Admin Dose 1,500 MG; Start 04/12/17 at 21:00 Miscellaneous Medication (Bystolic) 5 mg DAILY PO Last administered on 08:56; Admin Dose 5 MG; Start 04/13/17 at 09:00 Acetaminophen (Tylenol Tab) 650 mg Q6H PRN PO PAIN AND OR ELEVATED TEMP; Start 04/12/17 at 14:30 Atorvastatin Calcium (Lipitor) 40 mg DAILY@21 PO Last administered on 20:40; Admin Dose 40 MG; Start 04/12/17 at 21:00 Bisacodyl (Dulcolax) 5 mg DAILY PRN PO CONSTIPATION; Start 04/12/17 at 14:30 Carbamazepine (Tegretol) 200 mg TID PO Last administered on 04/14/17 12:37; Admin Dose 200 MG; Start 04/12/17 at 14:05 Docusate Sodium (Colace) 100 mg Q12H PRN PO CONSTIPATION; Start 04/12/17 at 14: 30 Fish Oil (Fish Oil) 2,000 mg BID PO Last administered on 04/14/17 08:55; Admin Dose 2,000 MG; Start 04/12/17 at 21:00 Folic Acid (Folic Acid) 1 mg DAILY PO Last administered on 04/14/17 08:55; Admin Dose 1 MG; Start 04/13/17 at 09:00 Lisinopril (Zestril) 40 mg DAILY PO ; Start 04/13/17 at 09:00 ELIJAH BUSH MD Apr 14, 2017 16:36
[2017-04-14 20:15] VITALS: BP 123/79; RESP 19
[2017-04-14] MEDS: ATORVASTATIN 40 MG TAB PO SCH (20:31)
[2017-04-15] MEDS: PANTOPRAZOLE (EC) 40 MG TAB PO SCH (06:32)
[2017-04-15] MEDS: FISH OIL 1,000 MG CAP PO SCH ×2 (08:19→20:12)
[2017-04-15] MEDS: GABAPENTIN 400 MG CAP PO SCH ×3 (08:20→20:13)
[2017-04-15] MEDS: FOLIC ACID 1 MG TAB PO SCH (08:20)
[2017-04-15] MEDS: CARBAMAZEPINE 200 MG TAB PO SCH ×3 (08:20→20:13)
[2017-04-15] MEDS: ASPIRIN (EC) 325 MG TAB PO SCH (08:20)
[2017-04-15] MEDS: NEBIVOLOL 5 MG TAB PO SCH (08:20)
[2017-04-15] MEDS: LEVETIRACETAM 750 MG TAB PO SCH ×2 (08:20→20:13)
[2017-04-15] MEDS: VITAMIN B COMPLEX/VIT C CAP PO SCH (08:20)
[2017-04-15 08:22] VITALS: BP 115/78; PULSE 82; RESP 14
[2017-04-15] MEDS: LISINOPRIL 20 MG TAB PO SCH (08:22)
--- NOTE | 2017-04-15 10:24 | PN ---
Date/Time of Note Date/Time of Note DATE: 04/15/17 TIME: 10:22 Assessment/Plan VTE Prophylaxis VTE Prophylaxis Intervention: ambulation, SCD's, other Lines/Catheters Urinary Cath still in place: No Assessment/Plan Assessment/Plan 1. History of falls with nondisplaced C6 vertebral body fracture, with impaired mobility, gait and ADLs. Continue conservative treatment per NSGY, cervical collar/cervical spine precautions. Continue PT/OT. Requires min assist for grooming and lower body dressing. 2. History of TBI in childhood with residual left-sided hemiparesis, spasticity , joint contractures. Continue therapies. 3. Seizure disorder. Continue medical management. 4. Hyperlipidemia. Continue statin. 5. Anemia. Continue to monitor hemoglobin/hematocrit. Internal medicine managing. 6. Hypertension. BP controlled. Continue medical management per internal medicine. Subjective 24 Hr Interval Summary Free Text/Dictation Rehab progress note Subjective: Denies any acute complaints. No neck pain reported. ROS: Denies headache, no dizziness, no chest pain, no shortness of breath, no abdominal pain, no nausea, no vomiting, no chills. Exam/Review of Systems Vital Signs Vitals Vital Signs Date Time Temp Pulse Resp B/P Pulse Ox O2 Delivery O2 Flow Rate FiO2 04/15/17 08:22 82 14 115/78 96 Room Air 04/14/17 20:15 97.5 Intake and Output 04/14/17 04/14/17 04/15/17 15:00 23:00 07:00 Intake Total 1050 ml 880 ml 750 ml Output Total 810 ml 700 ml 600 ml Balance 240 ml 180 ml 150 ml Exam General: Awake, alert, no acute distress Neck: Cervical collar in place CV: Regular rate and rhythm, s1s2 audible Lungs: Symmetrical air entry bilaterally, no wheezing Abdomen soft, nontender Extremities without cyanosis, no new swelling. Neuro: No focal changes. Left sided hemiparesis. Follows simple commands. Results Result Diagram: 04/13/1764304/13/17643 Medications Medications Current Medications Pantoprazole (Protonix Tab) 40 mg DAILY@06 PO Last administered on 04/15/17 06 :32; Admin Dose 40 MG; Start 04/13/17 at 06:00 Vitamin B Complex/ Vitamin C (Berocca) 1 cap DAILY PO Last administered on 04/15 08:20; Admin Dose 1 CAP; Start 04/13/17 at 09:00 Aspirin (Ecotrin) 325 mg DAILY PO Last administered on 04/15/17 08:20; Admin Dose 325 MG; Start 04/13/17 at 09:00 Gabapentin (Neurontin) 800 mg TID PO Last administered on 04/15/17 08:20; Admin Dose 800 MG; Start 04/12/17 at 14:01 Acetaminophen/ Hydrocodone Bitart ([place] (5/325)) 1 tab Q6H PRN PO PAIN; Start 04/12/17 at 14:30 Levetiracetam (Keppra) 1,500 mg BID PO Last administered on 04/15/17 08:20; Admin Dose 1,500 MG; Start 04/12/17 at 21:00 Miscellaneous Medication (Bystolic) 5 mg DAILY PO Last administered on 08:20; Admin Dose 5 MG; Start 04/13/17 at 09:00 Acetaminophen (Tylenol Tab) 650 mg Q6H PRN PO PAIN AND OR ELEVATED TEMP; Start 04/12/17 at 14:30 Atorvastatin Calcium (Lipitor) 40 mg DAILY@21 PO Last administered on 20:31; Admin Dose 40 MG; Start 04/12/17 at 21:00 Bisacodyl (Dulcolax) 5 mg DAILY PRN PO CONSTIPATION; Start 04/12/17 at 14:30 Carbamazepine (Tegretol) 200 mg TID PO Last administered on 04/15/17 08:20; Admin Dose 200 MG; Start 04/12/17 at 14:05 Docusate Sodium (Colace) 100 mg Q12H PRN PO CONSTIPATION Last administered on 06:32; Admin Dose 100 MG; Start 04/12/17 at 14:30 Fish Oil (Fish Oil) 2,000 mg BID PO Last administered on 04/15/17 08:19; Admin Dose 2,000 MG; Start 04/12/17 at 21:00 Folic Acid (Folic Acid) 1 mg DAILY PO Last administered on 04/15/17 08:20; Admin Dose 1 MG; Start 04/13/17 at 09:00 Lisinopril (Zestril) 40 mg DAILY PO ; Start 7/21/17 at 09:00 COLLINS ALLEN Apr 15, 2017 10:24
--- NOTE | 2017-04-15 15:43 | PN ---
Date/Time of Note Date/Time of Note DATE: 04/15/17 TIME: 15:41 Assessment/Plan VTE Prophylaxis VTE Prophylaxis Intervention: ambulation Lines/Catheters Urinary Cath still in place: No Assessment/Plan Problems: (1) C6 cervical fracture Status: Acute Comment: Management per Neurosurgery and ARU. Assessment/Plan Clinically stable Exam/Review of Systems Vital Signs Vitals Vital Signs Date Time Temp Pulse Resp B/P Pulse Ox O2 Delivery O2 Flow Rate FiO2 04/15/17 08:22 82 14 115/78 96 Room Air 04/14/17 20:15 97.5 Intake and Output 04/14/17 04/14/17 04/15/17 15:00 23:00 07:00 Intake Total 1050 ml 880 ml 750 ml Output Total 810 ml 700 ml 600 ml Balance 240 ml 180 ml 150 ml Exam Patient asleep. Per RN rosas talbert. Results Result Diagram: 04/13/1744 04/13/17 0644 Medications Medications Current Medications Pantoprazole (Protonix Tab) 40 mg DAILY@06 PO Last administered on 04/15/17 06 :32; Admin Dose 40 MG; Start 04/13/17 at 06:00 Vitamin B Complex/ Vitamin C (Berocca) 1 cap DAILY PO Last administered on 04/15 08:20; Admin Dose 1 CAP; Start 04/13/17 at 09:00 Aspirin (Ecotrin) 325 mg DAILY PO Last administered on 04/15/17 08:20; Admin Dose 325 MG; Start 04/13/17 at 09:00 Gabapentin (Neurontin) 800 mg TID PO Last administered on 04/15/17 12:08; Admin Dose 800 MG; Start 04/12/17 at 14:01 Acetaminophen/ Hydrocodone Bitart ([place] (5/325)) 1 tab Q6H PRN PO PAIN; Start 04/12/17 at 14:30 Levetiracetam (Keppra) 1,500 mg BID PO Last administered on 04/15/17 08:20; Admin Dose 1,500 MG; Start 04/12/17 at 21:00 Miscellaneous Medication (Bystolic) 5 mg DAILY PO Last administered on 08:20; Admin Dose 5 MG; Start 04/13/17 at 09:00 Acetaminophen (Tylenol Tab) 650 mg Q6H PRN PO PAIN AND OR ELEVATED TEMP; Start 04/12/17 at 14:30 Atorvastatin Calcium (Lipitor) 40 mg DAILY@21 PO Last administered on 20:31; Admin Dose 40 MG; Start 04/12/17 at 21:00 Bisacodyl (Dulcolax) 5 mg DAILY PRN PO CONSTIPATION; Start 04/12/17 at 14:30 Carbamazepine (Tegretol) 200 mg TID PO Last administered on 04/15/17 12:08; Admin Dose 200 MG; Start 04/12/17 at 14:05 Docusate Sodium (Colace) 100 mg Q12H PRN PO CONSTIPATION Last administered on 06:32; Admin Dose 100 MG; Start 04/12/17 at 14:30 Fish Oil (Fish Oil) 2,000 mg BID PO Last administered on 04/15/17 08:19; Admin Dose 2,000 MG; Start 04/12/17 at 21:00 Folic Acid (Folic Acid) 1 mg DAILY PO Last administered on 04/15/17 08:20; Admin Dose 1 MG; Start 04/13/17 at 09:00 Lisinopril (Zestril) 40 mg DAILY PO ; Start 04/13/17 at 09:00 ELIJAH BUSH MD Apr 15, 2017 15:43
[2017-04-15 20:00] VITALS: BP 118/75; RESP 18
[2017-04-15] MEDS: ATORVASTATIN 40 MG TAB PO SCH (20:12)
[2017-04-16 02:00] VITALS: BP 98/65; RESP 18
[2017-04-16] MEDS: PANTOPRAZOLE (EC) 40 MG TAB PO SCH (06:44)
[2017-04-16 07:48] VITALS: BP 136/86; RESP 18
[2017-04-16] MEDS: LEVETIRACETAM 750 MG TAB PO SCH ×2 (09:08→20:22)
[2017-04-16] MEDS: FOLIC ACID 1 MG TAB PO SCH (09:08)
[2017-04-16] MEDS: VITAMIN B COMPLEX/VIT C CAP PO SCH (09:09)
[2017-04-16] MEDS: LISINOPRIL 20 MG TAB PO SCH (09:09)
[2017-04-16] MEDS: FISH OIL 1,000 MG CAP PO SCH ×2 (09:09→20:22)
[2017-04-16] MEDS: CARBAMAZEPINE 200 MG TAB PO SCH ×3 (09:09→20:22)
[2017-04-16] MEDS: GABAPENTIN 400 MG CAP PO SCH ×3 (09:09→20:22)
[2017-04-16] MEDS: ASPIRIN (EC) 325 MG TAB PO SCH (09:10)
[2017-04-16] MEDS: NEBIVOLOL 5 MG TAB PO SCH (09:10)
[2017-04-16] MEDS ORDERED: ACETAMINOPHEN 325 MG TAB PO PRN (10:00)
[2017-04-16] MEDS ORDERED: LACTULOSE 30ML CUP PO PRN (10:00)
[2017-04-16] MEDS: DOCUSATE SODIUM 100 MG CAP PO SCH ×2 (10:00→20:22)
[2017-04-16] MEDS ORDERED: MAGNESIUM HYDROXIDE 30ML CUP PO PRN (10:00)
[2017-04-16 14:00] VITALS: BP 109/60; RESP 18
--- NOTE | 2017-04-16 14:04 | CONS ---
Date/Time of Note Date/Time of Note DATE: 04/16/17 TIME: 14:03 Consult Date/Type/Reason Admit Date/Time Apr 12, 2017 at 11:30 Initial Consult Date Type of Consultation: Rehabilitation Objective Vital Signs Date Time Temp Pulse Resp B/P Pulse Ox O2 Delivery O2 Flow Rate FiO2 04/16/17 07:48 98.0 80 18 136/86 97 04/15/17 08:22 Room Air Intake and Output 04/15/17 04/15/17 04/16/17 14:59 22:59 06:59 Intake Total 560 ml Output Total 440 ml Balance 120 ml INTERDISCIPLINARY TEAM CONFERENCE BOWEL- Cont BLADDER-Cont SKIN- intact OT- DRESSING-min BATHING-min TOILETING-min PT- BED MOBILITY-min TRANSFERS-min AMBULATION-min A/P- Interdisciplinary team conference held today. Please see interdisciplinary sheet. Working toward d.c. on 04/20 with post discharge follow up of physical therapy, occupational therapy. Results/Medications Result Diagram: 04/13/1764304/13/17643 Medications Current Medications Pantoprazole (Protonix Tab) 40 mg DAILY@06 PO Last administered on 04/16/17 06 :44; Admin Dose 40 MG; Start 04/13/17 at 06:00 Vitamin B Complex/ Vitamin C (Berocca) 1 cap DAILY PO Last administered on 04/16 09:09; Admin Dose 1 CAP; Start 04/13/17 at 09:00 Aspirin (Ecotrin) 325 mg DAILY PO Last administered on 04/16/17 09:10; Admin Dose 325 MG; Start 04/13/17 at 09:00 Gabapentin (Neurontin) 800 mg TID PO Last administered on 04/16/17 13:01; Admin Dose 800 MG; Start 04/12/17 at 14:01 Acetaminophen/ Hydrocodone Bitart ([place] (5/325)) 1 tab Q6H PRN PO PAIN; Start 04/12/17 at 14:30 Levetiracetam (Keppra) 1,500 mg BID PO Last administered on 04/16/17 09:08; Admin Dose 1,500 MG; Start 04/12/17 at 21:00 Miscellaneous Medication (Bystolic) 5 mg DAILY PO Last administered on 09:10; Admin Dose 5 MG; Start 04/13/17 at 09:00 Atorvastatin Calcium (Lipitor) 40 mg DAILY@21 PO Last administered on 20:12; Admin Dose 40 MG; Start 04/12/17 at 21:00 Bisacodyl (Dulcolax) 5 mg DAILY PRN PO CONSTIPATION; Start 04/12/17 at 14:30 Carbamazepine (Tegretol) 200 mg TID PO Last administered on 04/16/17 13:00; Admin Dose 200 MG; Start 04/12/17 at 14:05 Fish Oil (Fish Oil) 2,000 mg BID PO Last administered on 04/16/17 09:09; Admin Dose 2,000 MG; Start 04/12/17 at 21:00 Folic Acid (Folic Acid) 1 mg DAILY PO Last administered on 04/16/17 09:08; Admin Dose 1 MG; Start 04/13/17 at 09:00 Lisinopril (Zestril) 40 mg DAILY PO Last administered on 04/16/17 09:09; Admin Dose 40 MG; Start 04/13/17 at 09:00 Acetaminophen (Tylenol Tab) 650 mg Q4H PRN PO PAIN AND OR ELEVATED TEMP; Start 04/16/17 at 10:00 Docusate Sodium (Colace) 100 mg Q12 PO ; Start 04/16/17 at 10:00 Lactulose (Enulose) 20 gm DAILY PRN PO CONSTIPATION; Start 04/16/17 at 10:00 Magnesium Hydroxide (Milk Of Mag) 30 ml DAILY PRN PO CONSTIPATION; Start at 10:00 Senna (Senokot) 1 tab DAILY PO ; Start 04/17/17 at 09:00 MAHESH JAMESON MD Apr 16, 2017 14:04
[2017-04-16 20:00] VITALS: BP 104/66; RESP 18
[2017-04-16] MEDS: ATORVASTATIN 40 MG TAB PO SCH (20:22)
[2017-04-17 02:00] VITALS: BP 90/53; RESP 18
[2017-04-17] MEDS: PANTOPRAZOLE (EC) 40 MG TAB PO SCH (06:12)
--- NOTE | 2017-04-17 06:29 | PN ---
Date/Time of Note Date/Time of Note DATE: 04/17/17 TIME: 06:26 Assessment/Plan VTE Prophylaxis VTE Prophylaxis Intervention: ambulation Lines/Catheters Urinary Cath still in place: No Assessment/Plan Problems: (1) Post traumatic seizure disorder Status: Chronic Comment: On keppra and tegretol. Stable (2) Essential hypertension Status: Chronic Comment: BP controlled. Cont. current regimen (3) Hyperlipidemia Status: Chronic Comment: Cont. statin Qualifiers: Hyperlipidemia type: unspecified Qualified Code: E78.5 - Hyperlipidemia, unspecified hyperlipidemia type (4) C6 cervical fracture Status: Acute Comment: In c-collar. Neurosurgery following. Cont. rehab. Qualifiers: Encounter type: subsequent encounter Fracture type: closed Subjective 24 Hr Interval Summary Constitutional: improved, no complaints Respiratory: no complaints Cardiovascular: no complaints Gastrointestinal: no complaints Genitourinary: no complaints Musculoskeletal: no complaints Neurologic: no complaints Exam/Review of Systems Vital Signs Vitals VS - Last 72 Hours, by Label Date Time Temp Pulse Resp B/P Pulse Ox O2 Delivery O2 Flow Rate FiO2 04/17/17 02:00 97.8 81 18 90/53 97 04/16/17 20:00 98.2 88 18 104/66 97 04/16/17 14:00 98.2 85 18 109/60 96 04/16/17 07:48 98.0 80 18 136/86 97 04/16/17 02:00 98.2 96 18 98/65 98 04/15/17 20:00 98.5 88 18 118/75 93 04/15/17 08:22 82 14 115/78 96 Room Air 04/14/17 20:15 97.5 91 19 123/79 95 04/14/17 14:00 83 18 103/78 96 04/14/17 11:49 78 14 104/57 96 Room Air 04/14/17 08:58 76 16 111/78 97 Room Air 04/14/17 07:44 97.5 75 20 122/90 96 Vital Signs Date Time Temp Pulse Resp B/P Pulse Ox O2 Delivery O2 Flow Rate FiO2 04/17/17 02:00 97.8 81 18 90/53 97 04/15/17 08:22 Room Air Intake and Output 04/16/17 04/16/17 04/17/17 15:00 23:00 07:00 Intake Total 1040 ml 400 ml 200 ml Output Total 2000 ml 250 ml Balance -960 ml 150 ml 200 ml Exam Constitutional: alert, oriented, well developed Neck: other (in c-collar) Respiratory: clear to auscultation, normal air movement Cardiovascular: nl pulses, regular rate and rhythm, No edema, No murmurs/extra sounds, No rub Gastrointestinal: bowel sounds, nl liver, spleen, non-tender, soft, No mass, No rebound or guarding Musculoskeletal: nl extremities to inspection Extremities: normal pulses, No clubbing, No cyanosis, No edema 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, focal weakness (spastic LUE, LLE), nl mental status, nl speech, No nl strength Results Result Diagram: 04/13/1764304/13/17643 Medications Medications Current Medications Pantoprazole (Protonix Tab) 40 mg DAILY@06 PO Last administered on 04/17/17 06 :12; Admin Dose 40 MG; Start 04/13/17 at 06:00 Vitamin B Complex/ Vitamin C (Berocca) 1 cap DAILY PO Last administered on 04/16 09:09; Admin Dose 1 CAP; Start 04/13/17 at 09:00 Aspirin (Ecotrin) 325 mg DAILY PO Last administered on 04/16/17 09:10; Admin Dose 325 MG; Start 04/13/17 at 09:00 Gabapentin (Neurontin) 800 mg TID PO Last administered on 04/16/17 20:22; Admin Dose 800 MG; Start 04/12/17 at 14:01 Acetaminophen/ Hydrocodone Bitart ([place] (5/325)) 1 tab Q6H PRN PO PAIN; Start 04/12/17 at 14:30 Levetiracetam (Keppra) 1,500 mg BID PO Last administered on 04/16/17 20:22; Admin Dose 1,500 MG; Start 04/12/17 at 21:00 Miscellaneous Medication (Bystolic) 5 mg DAILY PO Last administered on 09:10; Admin Dose 5 MG; Start 04/13/17 at 09:00 Atorvastatin Calcium (Lipitor) 40 mg DAILY@21 PO Last administered on 20:22; Admin Dose 40 MG; Start 04/12/17 at 21:00 Bisacodyl (Dulcolax) 5 mg DAILY PRN PO CONSTIPATION; Start 04/12/17 at 14:30 Carbamazepine (Tegretol) 200 mg TID PO Last administered on 04/16/17 20:22; Admin Dose 200 MG; Start 04/12/17 at 14:05 Fish Oil (Fish Oil) 2,000 mg BID PO Last administered on 04/16/17 20:22; Admin Dose 2,000 MG; Start 04/12/17 at 21:00 Folic Acid (Folic Acid) 1 mg DAILY PO Last administered on 04/16/17 09:08; Admin Dose 1 MG; Start 04/13/17 at 09:00 Lisinopril (Zestril) 40 mg DAILY PO Last administered on 04/16/17 09:09; Admin Dose 40 MG; Start 04/13/17 at 09:00 Acetaminophen (Tylenol Tab) 650 mg Q4H PRN PO PAIN AND OR ELEVATED TEMP; Start 04/16/17 at 10:00 Docusate Sodium (Colace) 100 mg Q12 PO ; Start 04/16/17 at 10:00 Lactulose (Enulose) 20 gm DAILY PRN PO CONSTIPATION; Start 04/16/17 at 10:00 Magnesium Hydroxide (Milk Of Mag) 30 ml DAILY PRN PO CONSTIPATION; Start at 10:00 Senna (Senokot) 1 tab DAILY PO ; Start 04/17/17 at 09:00 RONNA MASCORRO MD Apr 17, 2017 06:29
[2017-04-17 07:40] VITALS: BP 121/77; RESP 18
[2017-04-17] MEDS: NEBIVOLOL 5 MG TAB PO SCH (09:17)
[2017-04-17] MEDS: FOLIC ACID 1 MG TAB PO SCH (09:19)
[2017-04-17] MEDS: ASPIRIN (EC) 325 MG TAB PO SCH (09:19)
[2017-04-17] MEDS: DOCUSATE SODIUM 100 MG CAP PO SCH ×2 (09:19→20:47)
[2017-04-17] MEDS: FISH OIL 1,000 MG CAP PO SCH ×2 (09:19→20:47)
[2017-04-17] MEDS: VITAMIN B COMPLEX/VIT C CAP PO SCH (09:19)
[2017-04-17] MEDS: LEVETIRACETAM 750 MG TAB PO SCH ×2 (09:20→20:47)
[2017-04-17] MEDS: GABAPENTIN 400 MG CAP PO SCH ×3 (09:20→20:47)
[2017-04-17] MEDS: CARBAMAZEPINE 200 MG TAB PO SCH ×3 (09:21→20:47)
[2017-04-17] MEDS: LISINOPRIL 20 MG TAB PO SCH (09:22)
[2017-04-17] MEDS: SENNA TAB PO SCH (09:27)
--- NOTE | 2017-04-17 11:10 | CONS ---
Date/Time of Note Date/Time of Note DATE: 04/17/17 TIME: 11:09 Consult Date/Type/Reason Admit Date/Time Apr 12, 2017 at 11:30 Type of Consultation: Rehabilitation Subjective Comfortable no new complaints Objective Lungs clear anteriorly Abdomen soft Minimal assist Vital Signs Date Time Temp Pulse Resp B/P Pulse Ox O2 Delivery O2 Flow Rate FiO2 04/17/17 07:40 98.3 80 18 121/77 97 04/15/17 08:22 Room Air Intake and Output 04/16/17 04/16/17 04/17/17 15:00 23:00 07:00 Intake Total 1040 ml 400 ml 200 ml Output Total 2000 ml 250 ml 400 ml Balance -960 ml 150 ml -200 ml Results/Medications Result Diagram: 04/13/1764304/13/17643 Medications Current Medications Pantoprazole (Protonix Tab) 40 mg DAILY@06 PO Last administered on 04/17/17 06 :12; Admin Dose 40 MG; Start 04/13/17 at 06:00 Vitamin B Complex/ Vitamin C (Berocca) 1 cap DAILY PO Last administered on 04/17 09:19; Admin Dose 1 CAP; Start 04/13/17 at 09:00 Aspirin (Ecotrin) 325 mg DAILY PO Last administered on 04/17/17 09:19; Admin Dose 325 MG; Start 04/13/17 at 09:00 Gabapentin (Neurontin) 800 mg TID PO Last administered on 04/17/17 09:20; Admin Dose 800 MG; Start 04/12/17 at 14:01 Acetaminophen/ Hydrocodone Bitart ([place] (5/325)) 1 tab Q6H PRN PO PAIN; Start 04/12/17 at 14:30 Levetiracetam (Keppra) 1,500 mg BID PO Last administered on 04/17/17 09:20; Admin Dose 1,500 MG; Start 04/12/17 at 21:00 Miscellaneous Medication (Bystolic) 5 mg DAILY PO Last administered on 09:17; Admin Dose 5 MG; Start 04/13/17 at 09:00 Atorvastatin Calcium (Lipitor) 40 mg DAILY@21 PO Last administered on 20:22; Admin Dose 40 MG; Start 04/12/17 at 21:00 Bisacodyl (Dulcolax) 5 mg DAILY PRN PO CONSTIPATION; Start 04/12/17 at 14:30 Carbamazepine (Tegretol) 200 mg TID PO Last administered on 04/17/17 09:21; Admin Dose 200 MG; Start 04/12/17 at 14:05 Fish Oil (Fish Oil) 2,000 mg BID PO Last administered on 04/17/17 09:19; Admin Dose 2,000 MG; Start 04/12/17 at 21:00 Folic Acid (Folic Acid) 1 mg DAILY PO Last administered on 04/17/17 09:19; Admin Dose 1 MG; Start 04/13/17 at 09:00 Lisinopril (Zestril) 40 mg DAILY PO Last administered on 04/17/17 09:22; Admin Dose 40 MG; Start 04/13/17 at 09:00 Acetaminophen (Tylenol Tab) 650 mg Q4H PRN PO PAIN AND OR ELEVATED TEMP; Start 04/16/17 at 10:00 Docusate Sodium (Colace) 100 mg Q12 PO Last administered on 04/17/17 09:19; Admin Dose 100 MG; Start 04/16/17 at 10:00 Lactulose (Enulose) 20 gm DAILY PRN PO CONSTIPATION; Start 04/16/17 at 10:00 Magnesium Hydroxide (Milk Of Mag) 30 ml DAILY PRN PO CONSTIPATION; Start at 10:00 Senna (Senokot) 1 tab DAILY PO Last administered on 04/17/17 09:27; Admin Dose 1 TAB; Start 04/17/17 at 09:00 Assessment/Plan Additional Assessment/Plan Rehabilitation -C6 vertebral body fracture Continue interdisciplinary rehab treatment plan Traumatic brain injury since childhood with persistent left-sided weakness- patient has been fit with left AFO Seizure disorder Hyperlipidemia MAHESH JAMESON MD Apr 17, 2017 11:10
[2017-04-17 14:00] VITALS: BP 101/66; RESP 18
[2017-04-17 19:45] VITALS: BP 106/63; PULSE 79; RESP 18
[2017-04-17] MEDS: ATORVASTATIN 40 MG TAB PO SCH (20:47)
--- NOTE | 2017-04-17 22:13 | PN ---
Date/Time of Note Date/Time of Note DATE: 04/17/17 TIME: 22:09 Assessment/Plan VTE Prophylaxis VTE Prophylaxis Intervention: ambulation Lines/Catheters Urinary Cath still in place: No Assessment/Plan Problems: (1) Essential hypertension Status: Chronic Comment: Good control. Cont. BP meds (2) Hyperlipidemia Status: Chronic Comment: Cont. statin Qualifiers: Hyperlipidemia type: unspecified Qualified Code: E78.5 - Hyperlipidemia, unspecified hyperlipidemia type (3) Post traumatic seizure disorder Status: Chronic Comment: Cont. keppra and carbamazepine (4) C6 cervical fracture Status: Acute Comment: Cont. rehab Qualifiers: Encounter type: subsequent encounter Fracture type: closed Subjective 24 Hr Interval Summary Constitutional: improved, no complaints Respiratory: no complaints Cardiovascular: no complaints Gastrointestinal: no complaints Genitourinary: no complaints Musculoskeletal: no complaints Neurologic: no complaints Exam/Review of Systems Vital Signs Vitals VS - Last 72 Hours, by Label Date Time Temp Pulse Resp B/P Pulse Ox O2 Delivery O2 Flow Rate FiO2 04/17/17 14:00 98.3 89 18 101/66 96 04/17/17 07:40 98.3 80 18 121/77 97 04/17/17 02:00 97.8 81 18 90/53 97 04/16/17 20:00 98.2 88 18 104/66 97 04/16/17 14:00 98.2 85 18 109/60 96 04/16/17 07:48 98.0 80 18 136/86 97 04/16/17 02:00 98.2 96 18 98/65 98 04/15/17 20:00 98.5 88 18 118/75 93 04/15/17 08:22 82 14 115/78 96 Room Air Vital Signs Date Time Temp Pulse Resp B/P Pulse Ox O2 Delivery O2 Flow Rate FiO2 04/17/17 14:00 98.3 89 18 101/66 96 04/15/17 08:22 Room Air Intake and Output 04/16/17 04/16/17 04/17/17 15:00 23:00 07:00 Intake Total 1040 ml 400 ml 200 ml Output Total 2000 ml 250 ml 400 ml Balance -960 ml 150 ml -200 ml Exam exam deferred due to pt. 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, focal weakness (spastic paresis LUE, LLE), nl mental status, nl speech, No nl strength Results Result Diagram: 04/13/1764304/13/17643 Medications Medications Current Medications Pantoprazole (Protonix Tab) 40 mg DAILY@06 PO Last administered on 04/17/17 06 :12; Admin Dose 40 MG; Start 04/13/17 at 06:00 Vitamin B Complex/ Vitamin C (Berocca) 1 cap DAILY PO Last administered on 04/17 09:19; Admin Dose 1 CAP; Start 04/13/17 at 09:00 Aspirin (Ecotrin) 325 mg DAILY PO Last administered on 04/17/17 09:19; Admin Dose 325 MG; Start 04/13/17 at 09:00 Gabapentin (Neurontin) 800 mg TID PO Last administered on 04/17/17 20:47; Admin Dose 800 MG; Start 04/12/17 at 14:01 Acetaminophen/ Hydrocodone Bitart ([place] (5/325)) 1 tab Q6H PRN PO PAIN; Start 04/12/17 at 14:30 Levetiracetam (Keppra) 1,500 mg BID PO Last administered on 04/17/17 20:47; Admin Dose 1,500 MG; Start 04/12/17 at 21:00 Miscellaneous Medication (Bystolic) 5 mg DAILY PO Last administered on 09:17; Admin Dose 5 MG; Start 04/13/17 at 09:00 Atorvastatin Calcium (Lipitor) 40 mg DAILY@21 PO Last administered on 20:47; Admin Dose 40 MG; Start 04/12/17 at 21:00 Bisacodyl (Dulcolax) 5 mg DAILY PRN PO CONSTIPATION; Start 04/12/17 at 14:30 Carbamazepine (Tegretol) 200 mg TID PO Last administered on 04/17/17 20:47; Admin Dose 200 MG; Start 04/12/17 at 14:05 Fish Oil (Fish Oil) 2,000 mg BID PO Last administered on 04/17/17 20:47; Admin Dose 2,000 MG; Start 04/12/17 at 21:00 Folic Acid (Folic Acid) 1 mg DAILY PO Last administered on 04/17/17 09:19; Admin Dose 1 MG; Start 04/13/17 at 09:00 Lisinopril (Zestril) 40 mg DAILY PO Last administered on 04/17/17 09:22; Admin Dose 40 MG; Start 04/13/17 at 09:00 Acetaminophen (Tylenol Tab) 650 mg Q4H PRN PO PAIN AND OR ELEVATED TEMP; Start 04/16/17 at 10:00 Docusate Sodium (Colace) 100 mg Q12 PO Last administered on 04/17/17 20:47; Admin Dose 100 MG; Start 04/16/17 at 10:00 Lactulose (Enulose) 20 gm DAILY PRN PO CONSTIPATION; Start 04/16/17 at 10:00 Magnesium Hydroxide (Milk Of Mag) 30 ml DAILY PRN PO CONSTIPATION; Start at 10:00 Senna (Senokot) 1 tab DAILY PO Last administered on 04/17/17 09:27; Admin Dose 1 TAB; Start 04/17/17 at 09:00 RONNA MASCORRO MD Apr 17, 2017 22:13
[2017-04-18] MEDS: PANTOPRAZOLE (EC) 40 MG TAB PO SCH (06:18)
[2017-04-18] MEDS: VITAMIN B COMPLEX/VIT C CAP PO SCH (09:00)
[2017-04-18] MEDS: CARBAMAZEPINE 200 MG TAB PO SCH ×3 (09:01→20:10)
[2017-04-18] MEDS: SENNA TAB PO SCH (09:01)
[2017-04-18] MEDS: LEVETIRACETAM 750 MG TAB PO SCH ×2 (09:01→20:10)
[2017-04-18] MEDS: NEBIVOLOL 5 MG TAB PO SCH (09:01)
[2017-04-18] MEDS: FOLIC ACID 1 MG TAB PO SCH (09:02)
[2017-04-18] MEDS: ASPIRIN (EC) 325 MG TAB PO SCH (09:02)
[2017-04-18] MEDS: DOCUSATE SODIUM 100 MG CAP PO SCH ×2 (09:02→20:11)
[2017-04-18] MEDS: LISINOPRIL 20 MG TAB PO SCH (09:02)
[2017-04-18] MEDS: GABAPENTIN 400 MG CAP PO SCH ×3 (09:02→20:10)
[2017-04-18] MEDS: FISH OIL 1,000 MG CAP PO SCH ×2 (09:02→20:10)
--- NOTE | 2017-04-18 10:47 | CONS ---
Date/Time of Note Date/Time of Note DATE: 04/18/17 TIME: 10:44 Consult Date/Type/Reason Admit Date/Time Apr 12, 2017 at 11:30 Type of Consultation: Rehabilitation Subjective Patient is pleased with his progress Objective Vital Signs Date Time Temp Pulse Resp B/P Pulse Ox O2 Delivery O2 Flow Rate FiO2 04/17/17 19:45 98.9 79 18 106/63 95 Room Air Intake and Output 04/17/17 04/17/17 04/18/17 15:00 23:00 07:00 Intake Total 800 ml 400 ml 950 ml Output Total 850 ml 300 ml 900 ml Balance -50 ml 100 ml 50 ml [id number] stair mobility and ambulation Results/Medications Medications Current Medications Pantoprazole (Protonix Tab) 40 mg DAILY@06 PO Last administered on 04/18/17 06 :18; Admin Dose 40 MG; Start 04/13/17 at 06:00 Vitamin B Complex/ Vitamin C (Berocca) 1 cap DAILY PO Last administered on 04/18 09:00; Admin Dose 1 CAP; Start 04/13/17 at 09:00 Aspirin (Ecotrin) 325 mg DAILY PO Last administered on 04/18/17 09:02; Admin Dose 325 MG; Start 04/13/17 at 09:00 Gabapentin (Neurontin) 800 mg TID PO Last administered on 04/18/17 09:02; Admin Dose 800 MG; Start 04/12/17 at 14:01 Acetaminophen/ Hydrocodone Bitart ([place] (5/325)) 1 tab Q6H PRN PO PAIN; Start 04/12/17 at 14:30 Levetiracetam (Keppra) 1,500 mg BID PO Last administered on 04/18/17 09:01; Admin Dose 1,500 MG; Start 04/12/17 at 21:00 Miscellaneous Medication (Bystolic) 5 mg DAILY PO Last administered on 09:01; Admin Dose 5 MG; Start 04/13/17 at 09:00 Atorvastatin Calcium (Lipitor) 40 mg DAILY@21 PO Last administered on 20:47; Admin Dose 40 MG; Start 04/12/17 at 21:00 Bisacodyl (Dulcolax) 5 mg DAILY PRN PO CONSTIPATION; Start 04/12/17 at 14:30 Carbamazepine (Tegretol) 200 mg TID PO Last administered on 04/18/17 09:01; Admin Dose 200 MG; Start 04/12/17 at 14:05 Fish Oil (Fish Oil) 2,000 mg BID PO Last administered on 04/18/17 09:02; Admin Dose 2,000 MG; Start 04/12/17 at 21:00 Folic Acid (Folic Acid) 1 mg DAILY PO Last administered on 04/18/17 09:02; Admin Dose 1 MG; Start 04/13/17 at 09:00 Lisinopril (Zestril) 40 mg DAILY PO Last administered on 04/18/17 09:02; Admin Dose 40 MG; Start 04/13/17 at 09:00 Acetaminophen (Tylenol Tab) 650 mg Q4H PRN PO PAIN AND OR ELEVATED TEMP; Start 04/16/17 at 10:00 Docusate Sodium (Colace) 100 mg Q12 PO Last administered on 04/18/17 09:02; Admin Dose 100 MG; Start 04/16/17 at 10:00 Lactulose (Enulose) 20 gm DAILY PRN PO CONSTIPATION; Start 04/16/17 at 10:00 Magnesium Hydroxide (Milk Of Mag) 30 ml DAILY PRN PO CONSTIPATION; Start at 10:00 Senna (Senokot) 1 tab DAILY PO Last administered on 04/18/17 09:01; Admin Dose 1 TAB; Start 04/17/17 at 09:00 Assessment/Plan Additional Assessment/Plan Rehabilitation -C6 vertebral body fracture Continue treatment plan. Working towards home at end of week Traumatic brain injury since childhood with persistent left-sided weakness-L AFO Seizure disorder Hyperlipidemia Functional impact of comorbidity: patient's residual left sided weakness from TBI as child has affected his self care and mobility, and he is working diligently to return to his independent level MAHESH JAMESON MD Apr 18, 2017 10:47
[2017-04-18 11:04] VITALS: BP 125/89; PULSE 89; RESP 18
[2017-04-18 20:06] VITALS: BP 102/65; PULSE 82; RESP 18
[2017-04-18] MEDS: ATORVASTATIN 40 MG TAB PO SCH (20:10)
--- NOTE | 2017-04-18 20:16 | PN ---
Date/Time of Note Date/Time of Note DATE: 04/18/17 TIME: 20:12 Assessment/Plan VTE Prophylaxis VTE Prophylaxis Intervention: ambulation Lines/Catheters Urinary Cath still in place: No Assessment/Plan Problems: (1) Essential hypertension Status: Chronic Comment: BP well-controlled. Cont. current anti-hypertensive regimen (2) Hyperlipidemia Status: Chronic Comment: Cont. statin Qualifiers: Hyperlipidemia type: unspecified Qualified Code: E78.5 - Hyperlipidemia, unspecified hyperlipidemia type (3) Post traumatic seizure disorder Status: Chronic Comment: Cont, keppra and tegretol (4) C6 cervical fracture Status: Acute Comment: Cont. rehab Qualifiers: Encounter type: subsequent encounter Fracture type: closed Subjective 24 Hr Interval Summary Constitutional: improved, no complaints Respiratory: no complaints Cardiovascular: no complaints Gastrointestinal: no complaints Genitourinary: no complaints Musculoskeletal: no complaints Neurologic: no complaints Exam/Review of Systems Vital Signs Vitals VS - Last 72 Hours, by Label Date Time Temp Pulse Resp B/P Pulse Ox O2 Delivery O2 Flow Rate FiO2 04/18/17 20:06 98.5 82 18 102/65 95 Room Air 04/18/17 11:04 98.2 89 18 125/89 95 Room Air 04/17/17 19:45 98.9 79 18 106/63 95 Room Air 04/17/17 14:00 98.3 89 18 101/66 96 04/17/17 07:40 98.3 80 18 121/77 97 04/17/17 02:00 97.8 81 18 90/53 97 04/16/17 20:00 98.2 88 18 104/66 97 04/16/17 14:00 98.2 85 18 109/60 96 04/16/17 07:48 98.0 80 18 136/86 97 04/16/17 02:00 98.2 96 18 98/65 98 Vital Signs Date Time Temp Pulse Resp B/P Pulse Ox O2 Delivery O2 Flow Rate FiO2 04/18/17 20:06 98.5 82 18 102/65 95 Room Air Intake and Output 04/17/17 04/17/17 04/18/17 15:00 23:00 07:00 Intake Total 800 ml 400 ml 950 ml Output Total 850 ml 300 ml 900 ml Balance -50 ml 100 ml 50 ml Exam Constitutional: alert, oriented, well developed Psych: nl mood/affect, no complaints Respiratory: clear to auscultation, normal air movement Cardiovascular: nl pulses, regular rate and rhythm, No edema, No murmurs/extra sounds, No rub Gastrointestinal: bowel sounds, nl liver, spleen, non-tender, soft, No mass, No rebound or guarding Musculoskeletal: nl extremities to inspection Extremities: normal pulses, No clubbing, No cyanosis, No edema 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, focal weakness (spastic paralysis LUE, LLE), nl mental status, nl speech Medications Medications Current Medications Pantoprazole (Protonix Tab) 40 mg DAILY@06 PO Last administered on 04/18/17 06 :18; Admin Dose 40 MG; Start 04/13/17 at 06:00 Vitamin B Complex/ Vitamin C (Berocca) 1 cap DAILY PO Last administered on 04/18 09:00; Admin Dose 1 CAP; Start 04/13/17 at 09:00 Aspirin (Ecotrin) 325 mg DAILY PO Last administered on 04/18/17 09:02; Admin Dose 325 MG; Start 04/13/17 at 09:00 Gabapentin (Neurontin) 800 mg TID PO Last administered on 04/18/17 20:10; Admin Dose 800 MG; Start 04/12/17 at 14:01 Acetaminophen/ Hydrocodone Bitart ([place] (5/325)) 1 tab Q6H PRN PO PAIN; Start 04/12/17 at 14:30 Levetiracetam (Keppra) 1,500 mg BID PO Last administered on 04/18/17 20:10; Admin Dose 1,500 MG; Start 04/12/17 at 21:00 Miscellaneous Medication (Bystolic) 5 mg DAILY PO Last administered on 09:01; Admin Dose 5 MG; Start 04/13/17 at 09:00 Atorvastatin Calcium (Lipitor) 40 mg DAILY@21 PO Last administered on 20:10; Admin Dose 40 MG; Start 04/12/17 at 21:00 Bisacodyl (Dulcolax) 5 mg DAILY PRN PO CONSTIPATION; Start 04/12/17 at 14:30 Carbamazepine (Tegretol) 200 mg TID PO Last administered on 04/18/17 20:10; Admin Dose 200 MG; Start 04/12/17 at 14:05 Fish Oil (Fish Oil) 2,000 mg BID PO Last administered on 04/18/17 20:10; Admin Dose 2,000 MG; Start 04/12/17 at 21:00 Folic Acid (Folic Acid) 1 mg DAILY PO Last administered on 04/18/17 09:02; Admin Dose 1 MG; Start 04/13/17 at 09:00 Lisinopril (Zestril) 40 mg DAILY PO Last administered on 04/18/17 09:02; Admin Dose 40 MG; Start 04/13/17 at 09:00 Acetaminophen (Tylenol Tab) 650 mg Q4H PRN PO PAIN AND OR ELEVATED TEMP; Start 04/16/17 at 10:00 Docusate Sodium (Colace) 100 mg Q12 PO Last administered on 04/18/17 09:02; Admin Dose 100 MG; Start 04/16/17 at 10:00 Lactulose (Enulose) 20 gm DAILY PRN PO CONSTIPATION; Start 04/16/17 at 10:00 Magnesium Hydroxide (Milk Of Mag) 30 ml DAILY PRN PO CONSTIPATION; Start at 10:00 Senna (Senokot) 1 tab DAILY PO Last administered on 04/18/17 09:01; Admin Dose 1 TAB; Start 04/17/17 at 09:00 RONNA MASCORRO MD Apr 18, 2017 20:15
[2017-04-19 03:08] VITALS: BP 111/72; PULSE 82; RESP 17
[2017-04-19] MEDS: PANTOPRAZOLE (EC) 40 MG TAB PO SCH (06:38)
[2017-04-19 07:30] VITALS: BP 118/82; RESP 18
[2017-04-19] MEDS: SENNA TAB PO SCH (08:47)
[2017-04-19] MEDS: GABAPENTIN 400 MG CAP PO SCH ×3 (08:47→21:09)
[2017-04-19] MEDS: ASPIRIN (EC) 325 MG TAB PO SCH (08:47)
[2017-04-19] MEDS: FISH OIL 1,000 MG CAP PO SCH ×2 (08:47→21:09)
[2017-04-19] MEDS: LEVETIRACETAM 750 MG TAB PO SCH ×2 (08:47→21:09)
[2017-04-19] MEDS: LISINOPRIL 20 MG TAB PO SCH (08:48)
[2017-04-19] MEDS: CARBAMAZEPINE 200 MG TAB PO SCH ×3 (08:48→21:10)
[2017-04-19] MEDS: VITAMIN B COMPLEX/VIT C CAP PO SCH (08:48)
[2017-04-19] MEDS: FOLIC ACID 1 MG TAB PO SCH (08:48)
[2017-04-19] MEDS: DOCUSATE SODIUM 100 MG CAP PO SCH ×2 (08:48→21:00)
[2017-04-19] MEDS: NEBIVOLOL 5 MG TAB PO SCH (08:48)
--- NOTE | 2017-04-19 11:13 | CONS ---
Date/Time of Note Date/Time of Note DATE: 04/19/17 TIME: 11:12 Consult Date/Type/Reason Admit Date/Time Apr 12, 2017 at 11:30 Type of Consultation: Rehabilitation Subjective Doing very well Objective Lungs clear supervised ambulation Vital Signs Date Time Temp Pulse Resp B/P Pulse Ox O2 Delivery O2 Flow Rate FiO2 04/19/17 07:30 97.7 79 18 118/82 96 04/19/17 03:08 Room Air Intake and Output 04/18/17 04/18/17 04/19/17 15:00 23:00 07:00 Intake Total 400 ml 150 ml Output Total 350 ml 700 ml Balance 50 ml -550 ml Results/Medications Medications Current Medications Pantoprazole (Protonix Tab) 40 mg DAILY@06 PO Last administered on 04/19/17 06 :38; Admin Dose 40 MG; Start 04/13/17 at 06:00 Vitamin B Complex/ Vitamin C (Berocca) 1 cap DAILY PO Last administered on 04/19 08:48; Admin Dose 1 CAP; Start 04/13/17 at 09:00 Aspirin (Ecotrin) 325 mg DAILY PO Last administered on 04/19/17 08:47; Admin Dose 325 MG; Start 04/13/17 at 09:00 Gabapentin (Neurontin) 800 mg TID PO Last administered on 04/19/17 08:47; Admin Dose 800 MG; Start 04/12/17 at 14:01 Acetaminophen/ Hydrocodone Bitart ([place] (5/325)) 1 tab Q6H PRN PO PAIN; Start 04/12/17 at 14:30 Levetiracetam (Keppra) 1,500 mg BID PO Last administered on 04/19/17 08:47; Admin Dose 1,500 MG; Start 04/12/17 at 21:00 Miscellaneous Medication (Bystolic) 5 mg DAILY PO Last administered on 08:48; Admin Dose 5 MG; Start 04/13/17 at 09:00 Atorvastatin Calcium (Lipitor) 40 mg DAILY@21 PO Last administered on 20:10; Admin Dose 40 MG; Start 04/12/17 at 21:00 Bisacodyl (Dulcolax) 5 mg DAILY PRN PO CONSTIPATION; Start 04/12/17 at 14:30 Carbamazepine (Tegretol) 200 mg TID PO Last administered on 04/19/17 08:48; Admin Dose 200 MG; Start 04/12/17 at 14:05 Fish Oil (Fish Oil) 2,000 mg BID PO Last administered on 04/19/17 08:47; Admin Dose 2,000 MG; Start 04/12/17 at 21:00 Folic Acid (Folic Acid) 1 mg DAILY PO Last administered on 04/19/17 08:48; Admin Dose 1 MG; Start 04/13/17 at 09:00 Lisinopril (Zestril) 40 mg DAILY PO Last administered on 04/19/17 08:48; Admin Dose 40 MG; Start 04/13/17 at 09:00 Acetaminophen (Tylenol Tab) 650 mg Q4H PRN PO PAIN AND OR ELEVATED TEMP; Start 04/16/17 at 10:00 Docusate Sodium (Colace) 100 mg Q12 PO Last administered on 04/19/17 08:48; Admin Dose 100 MG; Start 04/16/17 at 10:00 Lactulose (Enulose) 20 gm DAILY PRN PO CONSTIPATION; Start 04/16/17 at 10:00 Magnesium Hydroxide (Milk Of Mag) 30 ml DAILY PRN PO CONSTIPATION; Start at 10:00 Senna (Senokot) 1 tab DAILY PO Last administered on 04/19/17 08:47; Admin Dose 1 TAB; Start 04/17/17 at 09:00 Assessment/Plan Additional Assessment/Plan Rehabilitation -C6 vertebral body fracture Continue treatment plan. Excellent progress and anticipate discharge home tomorrow with home health physical therapy and Occupational Therapy follow-up Traumatic brain injury since childhood with persistent left-sided weakness-L AFO Seizure disorder Hyperlipidemia MAEHSH JAMESON MD Apr 19, 2017 11:13
[2017-04-19 19:44] VITALS: BP 101/61; RESP 18
--- NOTE | 2017-04-19 20:08 | PN ---
Date/Time of Note Date/Time of Note DATE: 04/19/17 TIME: 20:05 Assessment/Plan VTE Prophylaxis VTE Prophylaxis Intervention: ambulation Lines/Catheters Urinary Cath still in place: No Assessment/Plan Problems: (1) Essential hypertension Status: Chronic Comment: Excellent BP control. Cont. current BP regimen now and after d/c (2) Hyperlipidemia Status: Chronic Comment: Doing well. Cont. statin now and after d/c Qualifiers: Hyperlipidemia type: unspecified Qualified Code: E78.5 - Hyperlipidemia, unspecified hyperlipidemia type (3) Post traumatic seizure disorder Status: Chronic Comment: Cont. keppra and tegretol now and after d/c (4) C6 cervical fracture Status: Acute Comment: Doing well w/ rehab. Projected d/c home tomorrow. Agree from medical standpoint. Qualifiers: Encounter type: subsequent encounter Fracture type: closed Subjective 24 Hr Interval Summary Constitutional: improved, no complaints Respiratory: no complaints Cardiovascular: no complaints Gastrointestinal: no complaints Genitourinary: no complaints Musculoskeletal: no complaints Neurologic: no complaints Exam/Review of Systems Vital Signs Vitals VS - Last 72 Hours, by Label Date Time Temp Pulse Resp B/P Pulse Ox O2 Delivery O2 Flow Rate FiO2 04/19/17 19:44 98.3 78 18 101/61 97 04/19/17 07:30 97.7 79 18 118/82 96 04/19/17 03:08 98.5 82 17 111/72 97 Room Air 04/18/17 20:06 98.5 82 18 102/65 95 Room Air 04/18/17 11:04 98.2 89 18 125/89 95 Room Air 04/17/17 19:45 98.9 79 18 106/63 95 Room Air 04/17/17 14:00 98.3 89 18 101/66 96 04/17/17 07:40 98.3 80 18 121/77 97 04/17/17 02:00 97.8 81 18 90/53 97 Vital Signs Date Time Temp Pulse Resp B/P Pulse Ox O2 Delivery O2 Flow Rate FiO2 04/19/17 19:44 98.3 78 18 101/61 97 04/19/17 03:08 Room Air Intake and Output 04/18/17 04/18/17 04/19/17 15:00 23:00 07:00 Intake Total 400 ml 150 ml Output Total 350 ml 700 ml Balance 50 ml -550 ml Exam Constitutional: alert, oriented, well developed Psych: nl mood/affect, no complaints Respiratory: clear to auscultation, normal air movement Cardiovascular: nl pulses, regular rate and rhythm, No edema, No murmurs/extra sounds, No rub Gastrointestinal: nl liver, spleen, non-tender, soft Musculoskeletal: nl extremities to inspection Extremities: normal pulses, No clubbing, No cyanosis, No edema Neurological: [employer] II-XII intact, focal weakness (spastic paresis LUE, LLE), nl mental status, nl speech, No nl strength Medications Medications Current Medications Pantoprazole (Protonix Tab) 40 mg DAILY@06 PO Last administered on 04/19/17 06 :38; Admin Dose 40 MG; Start 04/13/17 at 06:00 Vitamin B Complex/ Vitamin C (Berocca) 1 cap DAILY PO Last administered on 04/19 08:48; Admin Dose 1 CAP; Start 04/13/17 at 09:00 Aspirin (Ecotrin) 325 mg DAILY PO Last administered on 04/19/17 08:47; Admin Dose 325 MG; Start 04/13/17 at 09:00 Gabapentin (Neurontin) 800 mg TID PO Last administered on 04/19/17 13:36; Admin Dose 800 MG; Start 04/12/17 at 14:01 Acetaminophen/ Hydrocodone Bitart ([place] (5/325)) 1 tab Q6H PRN PO PAIN; Start 04/12/17 at 14:30 Levetiracetam (Keppra) 1,500 mg BID PO Last administered on 04/19/17 08:47; Admin Dose 1,500 MG; Start 04/12/17 at 21:00 Miscellaneous Medication (Bystolic) 5 mg DAILY PO Last administered on 08:48; Admin Dose 5 MG; Start 04/13/17 at 09:00 Atorvastatin Calcium (Lipitor) 40 mg DAILY@21 PO Last administered on 20:10; Admin Dose 40 MG; Start 04/12/17 at 21:00 Bisacodyl (Dulcolax) 5 mg DAILY PRN PO CONSTIPATION; Start 04/12/17 at 14:30 Carbamazepine (Tegretol) 200 mg TID PO Last administered on 04/19/17 13:36; Admin Dose 200 MG; Start 04/12/17 at 14:05 Fish Oil (Fish Oil) 2,000 mg BID PO Last administered on 04/19/17 08:47; Admin Dose 2,000 MG; Start 04/12/17 at 21:00 Folic Acid (Folic Acid) 1 mg DAILY PO Last administered on 04/19/17 08:48; Admin Dose 1 MG; Start 04/13/17 at 09:00 Lisinopril (Zestril) 40 mg DAILY PO Last administered on 04/19/17 08:48; Admin Dose 40 MG; Start 04/13/17 at 09:00 Acetaminophen (Tylenol Tab) 650 mg Q4H PRN PO PAIN AND OR ELEVATED TEMP; Start 04/16/17 at 10:00 Docusate Sodium (Colace) 100 mg Q12 PO Last administered on 04/19/17 08:48; Admin Dose 100 MG; Start 04/16/17 at 10:00 Lactulose (Enulose) 20 gm DAILY PRN PO CONSTIPATION; Start 04/16/17 at 10:00 Magnesium Hydroxide (Milk Of Mag) 30 ml DAILY PRN PO CONSTIPATION; Start at 10:00 Senna (Senokot) 1 tab DAILY PO Last administered on 04/19/17 08:47; Admin Dose 1 TAB; Start 04/17/17 at 09:00 RONNA MASCORRO MD Apr 19, 2017 20:08
[2017-04-19] MEDS: ATORVASTATIN 40 MG TAB PO SCH (21:09)
[2017-04-20 02:00] VITALS: BP 115/67; RESP 18
[2017-04-20] MEDS: PANTOPRAZOLE (EC) 40 MG TAB PO SCH (06:37)
[2017-04-20 07:30] VITALS: BP 126/85; RESP 18
[2017-04-20] MEDS: VITAMIN B COMPLEX/VIT C CAP PO SCH (08:56)
[2017-04-20] MEDS: FISH OIL 1,000 MG CAP PO SCH (08:56)
[2017-04-20] MEDS: DOCUSATE SODIUM 100 MG CAP PO SCH (08:56)
[2017-04-20] MEDS: NEBIVOLOL 5 MG TAB PO SCH (08:56)
[2017-04-20] MEDS: ASPIRIN (EC) 325 MG TAB PO SCH (08:56)
[2017-04-20] MEDS: LEVETIRACETAM 750 MG TAB PO SCH (08:57)
[2017-04-20] MEDS: SENNA TAB PO SCH (08:57)
[2017-04-20] MEDS: FOLIC ACID 1 MG TAB PO SCH (08:57)
[2017-04-20] MEDS: GABAPENTIN 400 MG CAP PO SCH ×2 (08:57→13:11)
[2017-04-20] MEDS: LISINOPRIL 20 MG TAB PO SCH (08:58)
[2017-04-20] MEDS: CARBAMAZEPINE 200 MG TAB PO SCH ×2 (09:03→13:11)
--- NOTE | 2017-04-20 11:13 | DS ---
Date/Time of Note Date/Time of Note DATE: 04/20/17 TIME: 11:05 Discharge Summary Admission/Discharge Info Admit Date/Time Apr 12, 2017 at 11:30 Discharge Date/Time Discharge Diagnosis 1.C6 vertebral body fracture 2.. Traumatic brain injury since childhood with persistent left-sided weakness 3. Seizure disorder 4. Hyperlipidemia 5. Improvements in self-care and mobility Patient Condition: Good Hospital Course Patient was admitted for comprehensive interdisciplinary acute rehabilitation. Patient made steady functional gains and improved from a min/mod level to a Modified Independent level for self care and mobility, including ambulating over 150 feet. Patient is being discharged home with recommendations for home health PT and OT follow up. DME recommendations: FWW; [facility]; Shower Chair Patient will follow up with PMD and ortho upon DC. Home Meds Active Scripts Ibuprofen* (Motrin*) 400 Mg Tab, 400 MG PO Q8, #30 TAB Prov:DAMASO CONNORS 09/06/15 Reported Medications Omeprazole* (Omeprazole*) 20 Mg Capsule.dr, 20 MG PO DAILY, #30 CAP 09/06/15 Icosapent Ethyl (VASCEPA) 1 Gm Capsule, 2 GM PO BID, CAP 09/06/15 Gabapentin* (Gabapentin*) 800 Mg Tablet, 800 MG PO TID, TAB 09/06/15 Carbamazepine* (Carbamazepine*) 100 Mg Tab.chew, 200 MG PO TID, TAB.CHEW 09/06/15 Aspirin* (Aspirin* EC) 325 Mg Tab, 325 MG PO DAILY, TAB 09/06/15 Levetiracetam* (Keppra*) 1,000 Mg Tablet, 1500 MG PO BID, TAB 03/21/14 Vitamin B Complex (B Complex) 1 Tab.sa Tablet.sa, 1 TAB.SA PO DAILY 07/04/13 Simvastatin (Simvastatin) 40 Mg Tablet, 40 MG PO DAILY 07/04/13 Lisinopril* (Lisinopril*) 10 Mg Tablet, 20 MG PO DAILY 07/04/13 Folic Acid* (Folic Acid*) 1 Mg Tablet, 1 MG PO DAILY 07/04/13 Nebivolol* (Bystolic*) 5 Mg Tab, 5 MG PO DAILY 07/04/13 Primary Care Provider MD GISELL Grover LIVA L. MD Apr 20, 2017 11:13
== END 2017-04-20 13:15 | disposition home health service (06) | DRG 561 ==
LOC: VRC 11:30
PROVIDERS: ADMIT Physical Medicine & Rehabilitation; ATTEND Internal Medicine
PROC: F07Z5ZZ Bed Mobility Treatment (ICD-10-PCS; principal; 2017-04-13)
PROC: F08Z2ZZ Grooming/Personal Hygiene Treatment (ICD-10-PCS; 2017-04-13)
DX: S12.500D Unspecified displaced fracture of sixth cervical vertebra, subsequent encounter for fracture with routine healing (principal); I10 Essential (primary) hypertension; G40.909 Epilepsy, unspecified, not intractable, without status epilepticus; E78.5 Hyperlipidemia, unspecified; D64.9 Anemia, unspecified; Z87.820 Personal history of traumatic brain injury; X58.XXXD Exposure to other specified factors, subsequent encounter
CPT/HCPCS: 80053; 81003; 85025; 87081; 87086; 97110; 97112; 97116; 97150; 97163; 97167; 97530; 97535; L0174; L1932; L2820

== ENCOUNTER → 2018-06-14 | Outpatient (CLI) | END | disposition home or self-care (01) ==